=== PATIENT | male | born 1980 | race Caucasian/White ===

== ENCOUNTER 2018-06-23 14:43 | Emergency (ER) | payer SELFPAY ==
[2018-06-23] MEDS ORDERED: Ketorolac 60 MG/2 ML SDV IM ONE (14:54)
--- NOTE | 2018-06-23 15:05 | EDM.PDOC ---
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 Past medical history: As per history of present illness and as reviewed below otherwise noncontributory. Surgical history: As per history of present illness and as reviewed below otherwise noncontributory. Social history: No reported history of drug or alcohol abuse. Family history: As per history of present illness and as reviewed below otherwise noncontributory. Physical exam: HEENT: Atraumatic, normocephalic, pupils reactive, negative for conjunctival pallor or scleral icterus, mucous membranes moist, throat clear, neck supple, nontender, trachea midline. Lungs: Clear to auscultation, breath sounds equal bilaterally, chest nontender. Heart: S1S2, regular, negative for clicks, rubs, or JVD. Abdomen: Soft, nondistended, nontender. Negative for masses or hepatosplenomegaly. Negative for costovertebral tenderness. Pelvis: Stable nontender. Genitourinary: Deferred. Rectal: Deferred. Extremities: Atraumatic, negative for cords or calf pain. Neurovascular unremarkable. Neuro: Awake, alert, oriented. Cranial nerves II through XII unremarkable. Cerebellum unremarkable. Motor and sensory unremarkable throughout. Exam nonfocal. Diagnostics: [] lumbar spine Therapeutics: [] or dull 60 IM Toradol Flexeril Impression: [] muscle spasm Definitive disposition and diagnosis as appropriate pending reevaluation and review of above. upper right back Pain Score (Numeric/FACES): 8 - Related Data Allergies Allergy/AdvReac Type Severity Reaction Status Date / Time No Known Allergies Allergy Verified 06/23/18 14:56 Home Meds: Home Meds . [No Known Home Meds] 06/23/18 [History] Past Medical History Genitourinary History: Reports: Renal Calculus - Infectious Disease History Infectious Disease History: Reports: Chicken Pox - Past Surgical History Male Surgical History: Reports: Kidney Stone Extraction, Lithotripsy ([facility]) Social & Family History - Family History Family Medical History: Noncontributory - Tobacco Use Smoking Status *Q: Current Every Day Smoker Years of Tobacco use: 15 Packs/Tins Daily: 1 - Caffeine Use Caffeine Use: Reports: Coffee, Tea - Recreational Drug Use Recreational Drug Use: No ED ROS GENERAL - Review of Systems Review Of Systems: See Below ED EXAM, GENERAL - Physical Exam Exam: See Below Course - Vital Signs Last Recorded V/S: Last Vital Signs Temp 97.9 F 06/23/18 14:56 Pulse 96 06/23/18 14:56 Resp 18 06/23/18 14:56 BP 117/76 06/23/18 14:56 Pulse Ox 98 06/23/18 14:56 - Orders/Labs/Meds Meds: Medications Discontinued Medications Generic Name Dose Route Start Last Admin Trade Name Evelia PRN Reason Stop Dose Admin Ketorolac Tromethamine 60 mg 06/23/18 14:54 06/23/18 15:16 Toradol IM 06/23/18 14:55 60 mg ONETIME ONE Administration Departure - Departure Time of Disposition: 16:22 Disposition: Home, Self-Care 01 Condition: Good Clinical Impression: Spasm of lumbar paraspinous muscle - Discharge Information Referrals: PCP,None [Primary Care Provider] - Forms: ED Department Discharge Additional Instructions: The following information is given to patients seen in the emergency department who are being discharged to home. This information is to outline your options for follow-up care. We provide all patients seen in our emergency department with a follow-up referral. The need for follow-up, as well as the timing and circumstances, are variable depending upon the specifics of your emergency department visit. If you don't have a primary care physician on staff, we will provide you with a referral. We always advise you to contact your personal physician following an emergency department visit to inform them of the circumstance of the visit and for follow-up with them and/or the need for any referrals to a consulting specialist. The emergency department will also refer you to a specialist when appropriate. This referral assures that you have the opportunity for follow-up care with a specialist. All of these measure are taken in an effort to provide you with optimal care, which includes your follow-up. Under all circumstances we always encourage you to contact your private physician who remains a resource for coordinating your care. When calling for follow-up care, please make the office aware that this follow-up is from your recent emergency room visit. If for any reason you are refused follow-up, please contact the [facility] emergency department at and asked to speak to the emergency department charge nurse.
--- NOTE | 2018-06-23 15:42 | CR ---
INDICATION: pain/no injury INDICATION: Pain, no injury TECHNIQUE: Lumbar spine three views COMPARISON: None FINDINGS AND IMPRESSION: There are 5 [id number], lumbar type vertebral bodies. Normal lumbar lordosis. Normal alignment. Vertebral body heights are maintained. No significant degenerative changes. Dictated by Carmen Adan MD @ 06/23/2018 3:40:47 PM Dictated by: Carmen Adan MD @ 06/23/2018 15:40:59 (Electronically Signed)
== END 2018-06-23 16:32 | disposition home or self-care (01) ==
LOC: MW.ED 14:43
DX: M62.830 Muscle spasm of back (principal); F17.210 Nicotine dependence, cigarettes, uncomplicated
CPT/HCPCS: 72100; 96372; 99283; J1885

== ENCOUNTER 2018-09-05 16:50 | Emergency (ER) | payer SELFPAY ==
--- NOTE | 2018-09-05 17:46 | EDM.PDOC ---
ED HPI GENERAL MEDICAL PROBLEM - General Chief Complaint: Skin Complaint Stated Complaint: BUMP ON ARM Time Seen by Provider: 09/05/18 17:42 Source of Information: Reports: Patient History Limitations: Reports: No Limitations - History of Present Illness INITIAL COMMENTS - FREE TEXT/NARRATIVE: HISTORY AND PHYSICAL: History of present illness: Patient is a 38 year old male who presents to the emergency room today with complaints of a cellulitis to the left antecubital space. He states he injected heroin approximately 3 days ago and since that time has noticed a firm red area to the antecubital space. He denies any fevers, chills, chest pain, shortness of breath or cough. He denies any abdominal pain, nausea, vomiting, diarrhea, constipation or dysuria. States he has been eating and drinking appropriately. Review of systems: As per history of present illness and below otherwise all systems reviewed and negative. Past medical history: As per history of present illness and as reviewed below otherwise noncontributory. Surgical history: As per history of present illness and as reviewed below otherwise noncontributory. Social history: See social history for further information Family history: As per history of present illness and as reviewed below otherwise noncontributory. Physical exam: General: Well-developed and well-nourished 38 showed male. Alert and oriented. Nontoxic appearing and in no acute distress. HEENT: Atraumatic, normocephalic, pupils equal and reactive bilaterally, negative for conjunctival pallor or scleral icterus, mucous membranes moist, TMs normal bilaterally, throat clear, neck supple, nontender, trachea midline. No drooling or trismus noted. No meningeal signs. No hot potato voice noted. Lungs: Clear to auscultation, breath sounds equal bilaterally, chest nontender. Heart: S1S2, regular rate and rhythm without overt murmur Abdomen: Soft, nondistended, nontender. Negative for masses or hepatosplenomegaly. Negative for costovertebral tenderness. Pelvis: Stable nontender. Genitourinary: Deferred. Rectal: Deferred. Skin: Intact, warm, dry. No lesions or rashes noted. Extremities: Atraumatic, moves all extremities per self with difficulty or deficits, negative for cords or calf pain. Neurovascular unremarkable. Neuro: Awake, alert, oriented. Cranial nerves II through XII unremarkable. Cerebellum unremarkable. Motor and sensory unremarkable throughout. Exam nonfocal. Notes: Area was outlined surgical marker. He is agreeable to doing labs and a dose of IV antibiotics. I did strongly encourage that he allow admission today. He declines at this time stating that he can't afford to miss work. Admission was offered and 2 separate occasions. He is aware of the risks of not taking care of this appropriately. He would prefer to try outpatient by mouth antibiotics, he will return if he feels symptoms are not improving. Supportive care measures were reviewed and discussed. Voices understanding and is agreeable to plan of care. Denies any further questions or concerns at this time. Diagnostics: CBC, CMP, blood cultures Therapeutics: Vancomycin Prescription: Bactrim DS Tramadol (#20) Impression: Cellulitis, left upper extremity History of IV drug abuse Plan: 1. Stop drug use. Continue to monitor the area for signs of improvement. He declined admission today. If the area gets worse, new symptoms develop or no sign of improvement you do need to return to the emergency room for admission. 2. Take the antibiotic as prescribed. Tylenol and/or ibuprofen as needed for pain management. 3. Follow-up with primary care provider as we discussed. Return to the ED as needed and as discussed. Definitive disposition and diagnosis as appropriate pending reevaluation and review of above. left elbow wound Pain Score (Numeric/FACES): 2 - Related Data Allergies Allergy/AdvReac Type Severity Reaction Status Date / Time No Known Allergies Allergy Verified 09/05/18 17:14 Home Meds: Home Meds . [No Known Home Meds] 06/23/18 [History] Past Medical History - Past Health History Medical/Surgical History: Denies Medical/Surgical History Genitourinary History: Reports: Renal Calculus - Infectious Disease History Infectious Disease History: Reports: Chicken Pox - Past Surgical History Male Surgical History: Reports: Kidney Stone Extraction, Lithotripsy ([facility]) Social & Family History - Family History Family Medical History: Noncontributory - Tobacco Use Smoking Status *Q: Current Every Day Smoker Years of Tobacco use: 10 Packs/Tins Daily: 1 - Caffeine Use Caffeine Use: Reports: Coffee, Soda, Tea - Recreational Drug Use Recreational Drug Use: No ED ROS GENERAL - Review of Systems Review Of Systems: ROS reveals no pertinent complaints other than HPI. ED EXAM, SKIN/RASH Exam: See Below (See dictation) Course - Vital Signs Last Recorded V/S: Last Vital Signs Temp 99.8 F 09/05/18 17:11 Pulse 111 H 09/05/18 17:11 Resp 16 09/05/18 17:11 BP 123/67 09/05/18 17:11 Pulse Ox 98 09/05/18 17:11 - Orders/Labs/Meds Orders: Active Orders 24 hr Category Date Time Status CULTURE BLOOD [BC] Stat Lab 09/05/18 18:00 Received CULTURE BLOOD [BC] Stat Lab 09/05/18 18:41 Received Blood Culture x2 Reflex Set [OM.PC] Stat Oth 09/05/18 17:43 Ordered Labs: Laboratory Tests 09/05/18 09/05/18 Range/Units 18:00 18:00 WBC 15.75 H (4.0-11.0) K/uL RBC 4.90 (4.50-5.90) M/uL Hgb 14.5 (13.0-17.0) g/dL Hct 41.9 (38.0-50.0) % MCV 85.5 (80.0-98.0) fL MCH 29.6 (27.0-32.0) pg MCHC 34.6 (31.0-37.0) g/dL RDW Std Deviation 41.6 (28.0-62.0) fl RDW Coeff of Janelle 13 (11.0-15.0) % Plt Count 357 (150-400) K/uL MPV 9.00 (7.40-12.00) fL Neut % (Auto) 77.5 (48.0-80.0) % Lymph % (Auto) 13.1 L (16.0-40.0) % Greenlee % (Auto) 8.4 (0.0-15.0) % Eos % (Auto) 0.7 (0.0-7.0) % Baso % (Auto) 0.3 (0.0-1.5) % Neut # (Auto) 12.2 H (1.4-5.7) K/uL Lymph # (Auto) 2.1 (0.6-2.4) K/uL Greenlee # (Auto) 1.3 H (0.0-0.8) K/uL Eos # (Auto) 0.1 (0.0-0.7) K/uL Baso # (Auto) 0.0 (0.0-0.1) K/uL Nucleated RBC % 0.0 /100WBC Nucleated RBCs # 0 K/uL Sodium 142 (136-148) mmol/L Potassium 3.8 (3.5-5.1) mmol/L Chloride 105 (98-107) mmol/L Carbon Dioxide 26.0 (21.0-32.0) mmol/L BUN 15 (7.0-18.0) mg/dL Creatinine 0.8 (0.8-1.3) mg/dL Est Cr Clr Drug Dosing 114.66 mL/min Estimated GFR (MDRD) > 60.0 ml/min Glucose 85 (74-106) mg/dL Calcium 8.8 (8.5-10.1) mg/dL Total Bilirubin 0.3 (0.2-1.0) mg/dL AST 8 L (15-37) IU/L ALT 21 (14-63) IU/L Alkaline Phosphatase 80 (46-116) U/L Total Protein 7.7 (6.4-8.2) g/dL Albumin 3.4 (3.4-5.0) g/dL Globulin 4.3 H (2.6-4.0) g/dL Albumin/Globulin Ratio 0.8 L (0.9-1.6) Meds: Medications Discontinued Medications Generic Name Dose Route Start Last Admin Trade Name Freq PRN Reason Stop Dose Admin Vancomycin HCl 1 gm/ Sodium 250 mls @ 250 mls/hr 09/05/18 17:43 09/05/18 17: 57 Chloride IV 09/05/18 18:42 250 mls/hr ONETIME ONE Administration Departure - Departure Time of Disposition: 18:10 Disposition: Home, Self-Care 01 Clinical Impression: History of intravenous drug abuse Cellulitis Qualifiers: Site of cellulitis: extremity Site of cellulitis of extremity: upper extremity Laterality: left Qualified Code(s): L03.114 - Cellulitis of left upper limb - Discharge Information Instructions: Cellulitis, Adult, [id number] Referrals: PCP,Unknown [Primary Care Provider] - Forms: ED Department Discharge Additional Instructions: The following information is given to patients seen in the emergency department who are being discharged to home. This information is to outline your options for follow-up care. We provide all patients seen in our emergency department with a follow-up referral. The need for follow-up, as well as the timing and circumstances, are variable depending upon the specifics of your emergency department visit. If you don't have a primary care physician on staff, we will provide you with a referral. We always advise you to contact your personal physician following an emergency department visit to inform them of the circumstance of the visit and for follow-up with them and/or the need for any referrals to a consulting specialist. The emergency department will also refer you to a specialist when appropriate. This referral assures that you have the opportunity for follow-up care with a specialist. All of these measure are taken in an effort to provide you with optimal care, which includes your follow-up. Under all circumstances we always encourage you to contact your private physician who remains a resource for coordinating your care. When calling for follow-up care, please make the office aware that this follow-up is from your recent emergency room visit. If for any reason you are refused follow-up, please contact the [facility] Emergency Department at and asked to speak to the emergency department charge nurse. [facility] [address] [place] [address] [address] 1. Stop drug use. Continue to monitor the area for signs of improvement. He declined admission today. If the area gets worse, new symptoms develop or no sign of improvement you do need to return to the emergency room for admission. 2. Take the antibiotic as prescribed. Tylenol and/or ibuprofen as needed for pain management. 3. Follow-up with primary care provider as we discussed. Return to the ED as needed and as discussed. - My Orders Last 24 Hours: My Active Orders 09/05/18 17:43 Blood Culture x2 Reflex Set [OM.PC] Stat 09/05/18 18:00 CULTURE BLOOD [BC] Stat 09/05/18 18:41 CULTURE BLOOD [BC] Stat - Assessment/Plan Last 24 Hours: My Active Orders 09/05/18 17:43 Blood Culture x2 Reflex Set [OM.PC] Stat 09/05/18 18:00 CULTURE BLOOD [BC] Stat 09/05/18 18:41 CULTURE BLOOD [] Stat
[2018-09-05 18:43] LABS: CHLORIDE,CL 105 mmol/L (98-107); SODIUM,NA 142 mmol/L (136-148)
== END 2018-09-05 19:12 | disposition home or self-care (01) ==
LOC: MW.ED 16:50
DX: L03.114 Cellulitis of left upper limb (principal); F17.210 Nicotine dependence, cigarettes, uncomplicated
CPT/HCPCS: 36415; 80053; 85025; 87040; 96365; 99283; J3370; J7050

== ENCOUNTER 2018-09-06 13:55 | Emergency (ER) | payer SELFPAY ==
[2018-09-06] MEDS ORDERED: Ampicillin/Sulbactam Na 3 GM in Sodium Chloride 0.9% 100 ML IV ONE ×2 (14:24→14:35)
--- NOTE | 2018-09-06 14:30 | EDM.PDOC ---
ED HPI GENERAL MEDICAL PROBLEM - General Chief Complaint: Skin Complaint Stated Complaint: CHECK UP Time Seen by Provider: 09/06/18 13:58 Source of Information: Reports: Patient History Limitations: Reports: No Limitations - History of Present Illness INITIAL COMMENTS - FREE TEXT/NARRATIVE: HISTORY AND PHYSICAL: History of present illness: Patient is a 38-year-old male who presents to the ED today for follow-up of an antecubital cellulitis. Patient was seen yesterday in the ER and given IV antibiotics and oral Bactrim. She will cellulitis. At that time he was offered admission and declined. He states he is acting ED today for reevaluation of the infection. He denies no new complaints from prior. He states that he does not feel any better but also does not feel worse than yesterday. The area of cellulitis was marked yesterday ED visit. He was given IV vancomycin and sent home with oral Bactrim. He states he has been taking the antibiotics as prescribed. Patient denies fever, chills, or cough. Denies headache, neck stiff ness, change in vision, syncope, or near syncope. Denies nausea, vomiting, abdominal pain, diarrhea, constipation, or dysuria. Has not noted any blood in urine or stool. Patient has been eating and drinking appropriately. Review of systems: As per history of present illness and below otherwise all systems reviewed and negative. Past medical history: As per history of present illness and as reviewed below otherwise noncontributory. Surgical history: As per history of present illness and as reviewed below otherwise noncontributory. Social history: See social history for further information Family history: As per history of present illness and as reviewed below otherwise noncontributory. Physical exam: General: Patient is alert, oriented, and in no acute distress. He is sitting comfortably on exam table. HEENT: Atraumatic, normocephalic, pupils equal and reactive bilaterally, negative for conjunctival pallor or scleral icterus, mucous membranes moist, TMs normal bilaterally, throat clear, neck supple, nontender, trachea midline. No drooling or trismus noted. No meningeal signs. No hot potato voice noted. Lungs: Clear to auscultation, breath sounds equal bilaterally, chest nontender. Heart: S1S2, regular rate and rhythm without overt murmur Abdomen: Soft, nondistended, nontender. Negative for masses or hepatosplenomegaly. Negative for costovertebral tenderness. Pelvis: Stable nontender. Genitourinary: Deferred. Rectal: Deferred. Skin: There is an area of cellulitis and left antecubital prior outlined by surgical marker pen. The erythema seems to have spread slightly more proximal towards the left axilla but has recessed distally away from the forearm. The area is tender to palpation and warm to touch. Radial pulses grossly intact of the left arm and capillary refill less than 2 seconds. Extremities: See skin. Otherwise, atraumatic, negative for cords or calf pain. Neurovascular unremarkable. Neuro: Awake, alert, oriented. Cranial nerves II through XII unremarkable. Cerebellum unremarkable. Motor and sensory unremarkable throughout. Exam nonfocal. Notes: Patient's white blood cell count was slightly improved today. Area of erythema was re-outlined today. IV antibiotics in ED. Dr. Aceves was involved in patients care. Discussed the importance for monitoring for improvement of infection. Admission was offered to patient patient but he declines at this time. Discussed the importance for follow-up with his primary care provider and to continue outpatient antibiotic. Supportive care measures were reviewed and discussed. Voices understanding and is agreeable to plan of care. Denies any further questions or concerns at this time. Diagnostics: CBC Therapeutics: IV Unasyn Prescription: None Impression: Skin cellulitis, left antecubital Plan: 1. Continue medications as prescribed prior. You can use ibuprofen and Tylenol as needed for pain and discomfort. 2. Follow-up with her primary care provider as discussed. 3. Return to the ED as needed and as discussed. Definitive disposition and diagnosis as appropriate pending reevaluation and review of above. - Related Data Allergies Allergy/AdvReac Type Severity Reaction Status Date / Time No Known Allergies Allergy Verified 09/05/18 17:14 Home Meds: Home Meds Sulfamethoxazole/Trimethoprim [Bactrim 400-80 MG] 1 tab PO BID 09/06/18 [History ] Past Medical History - Past Health History Medical/Surgical History: Denies Medical/Surgical History Genitourinary History: Reports: Renal Calculus - Infectious Disease History Infectious Disease History: Reports: Chicken Pox - Past Surgical History Male Surgical History: Reports: Kidney Stone Extraction, Lithotripsy (ESWL) Social & Family History - Family History Family Medical History: Noncontributory - Tobacco Use Smoking Status *Q: Current Every Day Smoker Years of Tobacco use: 10 Packs/Tins Daily: 1 - Caffeine Use Caffeine Use: Reports: Coffee, Soda, Tea - Recreational Drug Use Recreational Drug Use: No ED ROS GENERAL - Review of Systems Review Of Systems: ROS reveals no pertinent complaints other than HPI. ED EXAM, SKIN/RASH Exam: See Below (See dictation) Course - Vital Signs Last Recorded V/S: Last Vital Signs Temp 36.6 C 09/06/18 14:12 Pulse 93 09/06/18 14:12 Resp 14 09/06/18 14:12 BP 120/63 09/06/18 14:12 Pulse Ox 97 09/06/18 14:12 - Orders/Labs/Meds Labs: Laboratory Tests 09/06/18 Range/Units 14:34 WBC 15.28 H (4.0-11.0) K/uL RBC 4.73 (4.50-5.90) M/uL Hgb 14.2 (13.0-17.0) g/dL Hct 40.7 (38.0-50.0) % MCV 86.0 (80.0-98.0) fL MCH 30.0 (27.0-32.0) pg MCHC 34.9 (31.0-37.0) g/dL RDW Std Deviation 41.6 (28.0-62.0) fl RDW Coeff of Janelle 13 (11.0-15.0) % Plt Count 368 (150-400) K/uL MPV 9.00 (7.40-12.00) fL Neut % (Auto) 79.9 (48.0-80.0) % Lymph % (Auto) 11.2 L (16.0-40.0) % [place] % (Auto) 7.7 (0.0-15.0) % Eos % (Auto) 1.0 (0.0-7.0) % Baso % (Auto) 0.2 (0.0-1.5) % Neut # (Auto) 12.2 H (1.4-5.7) K/uL Lymph # (Auto) 1.7 (0.6-2.4) K/uL [place] # (Auto) 1.2 H (0.0-0.8) K/uL Eos # (Auto) 0.2 (0.0-0.7) K/uL Baso # (Auto) 0.0 (0.0-0.1) K/uL Nucleated RBC % 0.0 /100WBC Nucleated RBCs # 0 K/uL Meds: Medications Discontinued Medications Generic Name Dose Route Start Last Admin Trade Name Mikeq PRN Reason Stop Dose Admin Ampicillin Sodium/Sulbactam 100 mls @ 200 mls/hr 09/06/18 14:24 09/06/18 14: 50 Sodium 3 gm/ Sodium Chloride IV 09/06/18 14:53 Not Given ONETIME ONE Ampicillin Sodium/Sulbactam 100 mls @ 200 mls/hr 09/06/18 14:35 09/06/18 14: 50 Sodium 3 gm/ Sodium Chloride IV 09/06/18 15:04 200 mls/hr ONETIME ONE Administration Departure - Departure Time of Disposition: 15:18 Disposition: Home, Self-Care 01 Clinical Impression: Cellulitis Qualifiers: Site of cellulitis: extremity Site of cellulitis of extremity: upper extremity Laterality: left Qualified Code(s): L03.114 - Cellulitis of left upper limb - Discharge Information Instructions: Cellulitis, Adult, Dhev-ab-Hyna Referrals: PCP,Unknown [Primary Care Provider] - Forms: ED Department Discharge Additional Instructions: The following information is given to patients seen in the emergency department who are being discharged to home. This information is to outline your options for follow-up care. We provide all patients seen in our emergency department with a follow-up referral. The need for follow-up, as well as the timing and circumstances, are variable depending upon the specifics of your emergency department visit. If you don't have a primary care physician on staff, we will provide you with a referral. We always advise you to contact your personal physician following an emergency department visit to inform them of the circumstance of the visit and for follow-up with them and/or the need for any referrals to a consulting specialist. The emergency department will also refer you to a specialist when appropriate. This referral assures that you have the opportunity for follow-up care with a specialist. All of these measure are taken in an effort to provide you with optimal care, which includes your follow-up. Under all circumstances we always encourage you to contact your private physician who remains a resource for coordinating your care. When calling for follow-up care, please make the office aware that this follow-up is from your recent emergency room visit. If for any reason you are refused follow-up, please contact the [facility] Emergency Department at and asked to speak to the emergency department charge nurse. [facility] [address], [place] [address] [facility] [address] [place] [id number] 1. Continue medications as prescribed prior. You can use ibuprofen and Tylenol as needed for pain and discomfort. 2. Follow-up with her primary care provider as discussed. 3. Return to the ED as needed and as discussed.
== END 2018-09-06 16:03 | disposition home or self-care (01) ==
LOC: MW.ED 13:55
DX: L03.114 Cellulitis of left upper limb (principal); F17.210 Nicotine dependence, cigarettes, uncomplicated
CPT/HCPCS: 36415; 85025; 96365; 99283; J0295; J7030

== ENCOUNTER 2018-09-07 18:11 | Emergency (ER) | payer SELFPAY ==
[2018-09-08] MEDS ORDERED: fentaNYL 100 MCG/2 ML SDV ONE ×2 (08:39→09:27)
[2018-09-08] MEDS ORDERED: Lidocaine 2% 5 ML SDV ONE (08:39)
[2018-09-08] MEDS ORDERED: Dexamethasone 4 MG/ML 5 ML MDV ONE (08:39)
[2018-09-08] MEDS ORDERED: Midazolam 1 MG/ML 2 ML SDV ONE (08:39)
[2018-09-08] MEDS ORDERED: Propofol 200 MG/20 ML SDV ONE ×2 (08:39→09:26)
[2018-09-08] MEDS ORDERED: Ketorolac 30 MG/ML SDV ONE (08:39)
[2018-09-08] MEDS ORDERED: Ondansetron 4 MG/2 ML SDV ONE (08:39)
== END 2018-09-07 20:00 | disposition left against medical advice (07) ==
LOC: MW.ED 18:11
DX: Z53.21 Procedure and treatment not carried out due to patient leaving prior to being seen by health care provider (principal)
CPT/HCPCS: 99281

== ENCOUNTER 2018-09-08 01:36 | Inpatient (IN) | payer SELFPAY ==
--- NOTE | 2018-09-08 01:49 | EDM.PDOC ---
ED HPI GENERAL MEDICAL PROBLEM - General Stated Complaint: CELLULITIS ON LEFT ARM Time Seen by Provider: 09/08/18 01:44 - History of Present Illness INITIAL COMMENTS - FREE TEXT/NARRATIVE: HISTORY AND PHYSICAL: History of present illness: The patient is a 38-year-old male with a history of IV drug abuse, heroin, who was seen here on September 05 and September 06 for cellulitis to the left antecubital fossa. On September 05 he was seen with complaints of having injected heroin in this region 3 days prior on September 02 noticing redness and pain to the area. On that admission he had labs indicating a WBC count of 15.75 without a left shift and blood cultures were also drawn. Those blood cultures have yielded negative results. He was given vancomycin IV and Bactrim for home as he refused admission and that ED visit. The patient returned the next day concerned because the area of cellulitis have been marked by the provider on September 05 and he thought that it was getting larger in size. On that evaluation the provider noted that there was some extension of the erythema superiorly but that was also regression of the inferior aspect of the region. WBC count was repeated and had lowered to 15.28 with no left shift. Again he was given IV Unasyn and he was offered admission and declined and wanted to pursue outpatient follow- up. The patient re-presented to our ED at about 8 PM last evening, approximately 6 hours ago, for reevaluation and care and when the triage nurse when out to find him he had departed without telling anyone that he was leaving. The patient now presents to the ED this morning complaining of increased swelling redness and discomfort at the area and he is concerned because he is having limited range of motion at the elbow. He had no recent new injury to the area and he states that he has been compliant with his antibiotics and he feels like the larger area of redness has improved but he feels like the central area has increased in size and pain. He told the nurse that he thought it was compressing the blood flow to his hand although he has no numbness or tingling in his hand and is able to range of motion at the hand or wrist without problems. He has no systemic complaints of fever chills nausea or vomiting no chest pain or shortness of breath and no other lesions or skin areas in question. He received a tetanus shot on one of his prior ED visits this week. The patient tells me that he wanted to get this taken care of because he needs to go to work and that he would be willing to be admitted if that were indicated. Review of systems: As per history of present illness and below otherwise all systems reviewed and negative. Past medical history: As per history of present illness and as reviewed below otherwise noncontributory. Surgical history: As per history of present illness and as reviewed below otherwise noncontributory. Social history: No reported history of drug or alcohol abuse. Family history: As per history of present illness and as reviewed below otherwise noncontributory. Physical exam: General: Well-developed well-nourished thin man who is nontoxic and vital signs are noted by me HEENT: Atraumatic, normocephalic, pupils reactive, negative for conjunctival pallor or scleral icterus, mucous membranes moist, throat clear, neck supple, nontender, trachea midline. Lungs: Clear to auscultation, breath sounds equal bilaterally, chest nontender. Heart: S1S2, regular rhythm and slowly tachycardic rate of my evaluation but no overt murmurs Abdomen: Soft, nondistended, nontender. NABS Pelvis: Deferred Genitourinary: Deferred. Rectal: Deferred. Extremities: Atraumatic, no palpable bony deformities are appreciated throughout the skeleton more specially in the left upper extremity. At the left antecubital fossa area more to the medial aspect there is a large ill-defined area of erythema which extends both superiorly and inferiorly which appears to be improving from prior markings in the ED. There is an 8 x 8 cm ill-defined area more centrally in this region which is more indurated and more well demarcated and within the center there is a 3 x 3 cm area of fluctuance. There is no crepitus appreciated throughout this region nor in the proximal and superior aspects of the extremity and there is no axillary adenopathy appreciated. Pulses are very strong and palpable both radial and ulnar in the distal wrist and there is good cap refill in the hand with strength and range of motion of the hand and wrist. There is normal capillary Refill. Remainder the extremities have full range of motion without defects or deficits.. Neurovascular unremarkable. Neuro: Awake, alert, oriented. Cranial nerves II through XII unremarkable. Cerebellum unremarkable. Motor and sensory unremarkable throughout. Exam nonfocal. Diagnostics: CBC CMP lactic acid blood cultures 2 x-ray of the soft tissue elbow left ultrasound of the region in question Therapeutics: IV placement Toradol Invanz 0317: Case was discussed with our orthopedic surgeon carbon brush maker Dr. Carpenter will do a formal consult in the morning and request a CT scan without contrast of the arm so that he can potentially do surgery this morning. He asked that the patient is NPO and I have put on D5 half-normal saline IV fluids at maintenance. 0320: Case was discussed with Dr. Bowser our hospitalist who accepts the patient for admission. He is aware that the orthopedic surgeon will be seeing the patient in the morning and consulting and probably draining this abscess in the operating room. I've also discussed testing results with the patient who is agreeable to admission and is aware of his nothing by mouth status. Patient says that his pain is currently a 2/10 and is more dull. Impression: Left upper extremity abscess/cellulitis, failed outpatient treatment Definitive disposition and diagnosis as appropriate pending reevaluation and review of above. Left Elbow Pain Score (Numeric/FACES): 5 - Related Data Allergies Allergy/AdvReac Type Severity Reaction Status Date / Time No Known Allergies Allergy Verified 09/08/18 01:49 Home Meds: Home Meds Sulfamethoxazole/Trimethoprim [Bactrim 400-80 MG] 1 tab PO BID 09/06/18 [History ] Past Medical History - Past Health History Medical/Surgical History: Denies Medical/Surgical History Genitourinary History: Reports: Renal Calculus - Infectious Disease History Infectious Disease History: Reports: Chicken Pox - Past Surgical History Male Surgical History: Reports: Kidney Stone Extraction, Lithotripsy (ESWL) Social & Family History - Family History Family Medical History: Noncontributory - Caffeine Use Caffeine Use: Reports: Coffee, Soda, Tea ED ROS GENERAL - Review of Systems Review Of Systems: ROS reveals no pertinent complaints other than HPI. ED EXAM, GENERAL - Physical Exam Exam: See Below (See dictation) Course - Vital Signs Last Recorded V/S: Last Vital Signs Temp 36.8 C 09/08/18 03:07 Pulse 86 09/08/18 03:07 Resp 16 09/08/18 03:07 BP 119/67 09/08/18 01:46 Pulse Ox 96 09/08/18 03:07 - Orders/Labs/Meds Orders: Active Orders 24 hr Category Date Time Status Patient Status [ADT] Stat ADT 09/08/18 03:25 Ordered Notify Provider Consults [RC] ASDIRECTED Care 09/08/18 03:29 Ordered Consult to Physician [CONS] Stat Cons 09/08/18 03:29 Ordered Extremity, Non Vascular LTD [CT] Stat Exams 09/08/18 03:20 Ordered CULTURE BLOOD [BC] Stat Lab 09/08/18 02:20 Received CULTURE BLOOD [BC] Stat Lab 09/08/18 02:38 Received Dextrose 5%-1/2 Normal Saline @ 125 MLS/HR(1000ml) Med 09/08/18 03:30 Ordered Dextrose 5%-0.45% NaCl [Dextrose 5%-1/2 NS] 1,000 ml IV ASDIRECTED Sodium Chloride 0.9% [Saline Flush] Med 09/08/18 02:00 Active 10 ml FLUSH ASDIRECTED PRN Sodium Chloride 0.9% [Saline Flush] Med 09/08/18 02:00 Active 2.5 ml FLUSH ASDIRECTED PRN Blood Culture x2 Reflex Set [OM.PC] Stat Oth 09/08/18 02:06 Ordered Saline Lock Insert [OM.PC] Stat Oth 09/08/18 01:59 Ordered Medication Orders Dextrose/Sodium Chloride (Dextrose 5%-1/2 Ns) 1,000 mls @ 125 mls/hr IV ASDIRECTED CHANG Sodium Chloride (Saline Flush) 10 ml FLUSH ASDIRECTED PRN PRN Reason: Keep Vein Open Last Admin: 09/08/18 03:05 Dose: 10 ml Sodium Chloride (Saline Flush) 2.5 ml FLUSH ASDIRECTED PRN PRN Reason: Keep Vein Open Last Admin: 09/08/18 03:05 Dose: 2.5 ml Labs: Laboratory Tests 09/08/18 09/08/18 09/08/18 Range/Units 02:20 02:20 02:20 WBC 13.59 H (4.0-11.0) K/uL RBC 4.84 (4.50-5.90) M/uL Hgb 14.3 (13.0-17.0) g/dL Hct 41.6 (38.0-50.0) % MCV 86.0 (80.0-98.0) fL MCH 29.5 (27.0-32.0) pg MCHC 34.4 (31.0-37.0) g/dL RDW Std Deviation 41.6 (28.0-62.0) fl RDW Coeff of Janelle 13 (11.0-15.0) % Plt Count 396 (150-400) K/uL MPV 8.90 (7.40-12.00) fL Neut % (Auto) 73.9 (48.0-80.0) % Lymph % (Auto) 13.8 L (16.0-40.0) % [place] % (Auto) 9.3 (0.0-15.0) % Eos % (Auto) 2.9 (0.0-7.0) % Baso % (Auto) 0.1 (0.0-1.5) % Neut # (Auto) 10.0 H (1.4-5.7) K/uL Lymph # (Auto) 1.9 (0.6-2.4) K/uL [place] # (Auto) 1.3 H (0.0-0.8) K/uL Eos # (Auto) 0.4 (0.0-0.7) K/uL Baso # (Auto) 0.0 (0.0-0.1) K/uL Nucleated RBC % 0.0 /100WBC Nucleated RBCs # 0 K/uL Lactate 1.5 (0.20-2.00) mmol/L Sodium 138 (136-148) mmol/L Potassium 3.9 (3.5-5.1) mmol/L Chloride 101 (98-107) mmol/L Carbon Dioxide 26.7 (21.0-32.0) mmol/L BUN 19 H (7.0-18.0) mg/dL Creatinine 1.0 (0.8-1.3) mg/dL Est Cr Clr Drug Dosing 91.73 mL/min Estimated GFR (MDRD) > 60.0 ml/min Glucose 154 H (74-106) mg/dL Calcium 8.7 (8.5-10.1) mg/dL Total Bilirubin 0.2 (0.2-1.0) mg/dL AST 12 L (15-37) IU/L ALT 17 (14-63) IU/L Alkaline Phosphatase 73 (46-116) U/L Total Protein 7.5 (6.4-8.2) g/dL Albumin 3.0 L (3.4-5.0) g/dL Globulin 4.5 H (2.6-4.0) g/dL Albumin/Globulin Ratio 0.7 L (0.9-1.6) Meds: Medications Generic Name Dose Route Start Last Admin Trade Name Freq PRN Reason Stop Dose Admin Dextrose/Sodium Chloride 1,000 mls @ 125 mls/hr 09/08/18 03:30 Dextrose 5%-1/2 Ns IV ASDIRECTED CHANG Sodium Chloride 10 ml 09/08/18 02:00 09/08/18 03:05 Saline Flush FLUSH 10 ml ASDIRECTED PRN Administration Keep Vein Open Sodium Chloride 2.5 ml 09/08/18 02:00 09/08/18 03:05 Saline Flush FLUSH 2.5 ml ASDIRECTED PRN Administration Keep Vein Open Discontinued Medications Generic Name Dose Route Start Last Admin Trade Name Mikeq PRN Reason Stop Dose Admin Ertapenem 1 gm/ Sodium 50 mls @ 100 mls/hr 09/08/18 02:01 09/08/18 03:04 Chloride IV 09/08/18 02:30 100 mls/hr ONETIME ONE Administration Ketorolac Tromethamine 30 mg 09/08/18 02:01 09/08/18 02:18 Toradol IVPUSH 09/08/18 02:02 30 mg ONETIME ONE Administration Morphine Sulfate 4 mg 09/08/18 02:06 09/08/18 02:19 Morphine IVPUSH 09/08/18 02:07 4 mg ONETIME ONE Administration Departure - Departure Time of Disposition: 03:31 Disposition: Admitted As Inpatient 68 Condition: Good Clinical Impression: Abscess, Cellulitis of left forearm - Discharge Information Referrals: PCP,None [Primary Care Provider] - - My Orders Last 24 Hours: My Active Orders 09/08/18 01:59 Saline Lock Insert [OM.PC] Stat 09/08/18 02:00 Sodium Chloride 0.9% [Saline Flush] 10 ml FLUSH ASDIRECTED PRN Sodium Chloride 0.9% [Saline Flush] 2.5 ml FLUSH ASDIRECTED PRN 09/08/18 02:06 Blood Culture x2 Reflex Set [OM.PC] Stat 09/08/18 02:20 CULTURE BLOOD [BC] Stat 09/08/18 02:38 CULTURE BLOOD [BC] Stat 09/08/18 03:20 Extremity, Non Vascular LTD [CT] Stat 09/08/18 03:25 Patient Status [ADT] Stat 09/08/18 03:29 Notify Provider Consults [RC] ASDIRECTED Consult to Physician [CONS] Stat 09/08/18 03:30 Dextrose 5%-1/2 Normal Saline @ 125 MLS/HR(1000ml) Dextrose 5%-0.45% NaCl [ Dextrose 5%-1/2 NS] 1,000 ml IV ASDIRECTED - Assessment/Plan Last 24 Hours: My Active Orders 09/08/18 01:59 Saline Lock Insert [OM.PC] Stat 09/08/18 02:00 Sodium Chloride 0.9% [Saline Flush] 10 ml FLUSH ASDIRECTED PRN Sodium Chloride 0.9% [Saline Flush] 2.5 ml FLUSH ASDIRECTED PRN 09/08/18 02:06 Blood Culture x2 Reflex Set [OM.PC] Stat 09/08/18 02:20 CULTURE BLOOD [BC] Stat 09/08/18 02:38 CULTURE BLOOD [BC] Stat 09/08/18 03:20 Extremity, Non Vascular LTD [CT] Stat 09/08/18 03:25 Patient Status [ADT] Stat 09/08/18 03:29 Notify Provider Consults [RC] ASDIRECTED Consult to Physician [CONS] Stat 09/08/18 03:30 Dextrose 5%-1/2 Normal Saline @ 125 MLS/HR(1000ml) Dextrose 5%-0.45% NaCl [ Dextrose 5%-1/2 NS] 1,000 ml IV ASDIRECTED
[2018-09-08] MEDS ORDERED: Sodium Chloride 0.9% 10 ML Syringe FLUSH PRN (02:00)
[2018-09-08] MEDS ORDERED: Sodium Chloride 0.9% 2.5 ML Syringe FLUSH PRN (02:00)
[2018-09-08] MEDS ORDERED: Ertapenem 1 GM in Sodium Chloride 0.9% 50 ML IV ONE (02:01)
[2018-09-08] MEDS ORDERED: Ketorolac 30 MG/ML SDV IVPUSH ONE (02:01)
[2018-09-08] MEDS ORDERED: Morphine 2 MG/ML Syringe IVPUSH ONE (02:06)
--- NOTE | 2018-09-08 02:28 | CR ---
INDICATION: Pain and swelling TECHNIQUE: Two views left elbow COMPARISON: None FINDINGS: Bones: Alignment is normal. No fractures or bone lesions. Joint spaces: Unremarkable. Soft tissues: Soft tissue edema medial to the elbow joint. IMPRESSION: Soft tissue edema medial to the elbow joint. Dictated by Peterson Hahn MD @ 09/08/2018 2:25:28 AM Dictated by: Peterson Hahn MD @ 09/08/2018 02:25:41 (Electronically Signed)
[2018-09-08 02:55] LABS: CHLORIDE,CL 101 mmol/L (98-107); SODIUM,NA 138 mmol/L (136-148)
--- NOTE | 2018-09-08 03:11 | US ---
Indication: Possible abscess Technique: Ultrasound extremity left Comparison: None Findings: Present in the soft tissues medial to the left elbow is a 5.0 centimeter mixed echogenic fluid collection worrisome for abscess. Impression: 5.0 centimeter complex fluid collection medial to the left elbow worrisome for abscess given the patient`s history. Dictated by Peterson Hahn MD @ 09/08/2018 3:08:50 AM Dictated by: Peterson Hahn MD @ 09/08/2018 03:09:03 (Electronically Signed)
[2018-09-08] MEDS ORDERED: Dextrose 5%-0.45% NaCl 1,000 ML IV SCH (03:30)
[2018-09-08] MEDS ORDERED: Diphtheria,Pertussis(Acell),Tetanus Vaccine 0.5 ML Syringe IM ONE (03:32)
--- NOTE | 2018-09-08 04:53 | CT ---
HISTORY: Swelling. Possible abscess. TECHNIQUE: CT left elbow without contrast. COMPARISON: Ultrasound 09/08/2018. Radiographs 09/08/2018. FINDINGS: Infiltration of subcutaneous fat throughout the elbow with areas of confluent infiltration volarly, medially, and dorsally. Complex process with central fluid density component in the anteromedial arm just above the elbow. Process has a thick soft tissue density peripheral component with irregularly-shaped central fluid density component. Central fluid density component measures approximately 2.2 x 1.3 x 2.5 cm. Overall process measures approximately 3.6 x 2.7 x 5.7 cm although the process is not optimally delineated in the absence of IV contrast. Process may extend into the soft tissues. Stranding and small amount of fluid in the deep fascial planes. Approximately 2 x 1.5 x 4 cm above water density area superficial to the larger process (axial series 201 image 58). No soft tissue gas. No erosions. No fracture or dislocation. Elbow joint spaces are maintained. Muscle bulk is normal. IMPRESSION: 1. Poorly delineated space-occupying process in the anteromedial elbow and arm just above the elbow. The overall process measures approximately 3.6 x 2.7 x 5.7 cm with a smaller fluid density central component. In the appropriate clinical scenario finding would be compatible with an abscess. Primary differential consideration would be a mixed age hematoma if there was an injury. Cystic neoplasm is felt less likely. 2. Subcutaneous fat infiltration from edema and/or cellulitis. 3. Inflammatory change/edema in the deep fascial planes adjacent to the process. Correlate with clinical findings of fasciitis. No soft tissue gas. 4. No erosions to suggest osteomyelitis. Please note that all CT scans at this facility use dose modulation, iterative reconstruction, and/or weight-based dosing when appropriate to reduce radiation dose to as low as reasonably achievable. Dictated by Denzel Riley MD @ Sep 09 2018 2:20PM Signed by Dr. eDnzel Riley @ Sep 09 2018 2:36PM
[2018-09-08] MEDS: Piperacillin/Tazobactam 3.375 GM in Sodium Chloride 0.9% 50 ML IV SCH ×4 (05:46→22:44)
[2018-09-08] MEDS: Sodium Chloride 0.9% 1,000 ML IV SCH ×3 (05:47→19:35)
--- NOTE | 2018-09-08 08:34 | PCM.CONS ---
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 He has been to the ER multiple times and refused admission. He received IV antibiotics and was sent home with bactrim. He is now on zosyn and vancomycin and received invanz in the ER last night. the swelling has improved since admission in the left arm, but he has difficulty bending the arm due to a localized area of swelling and pain on the anterior aspect of the arm. No numbness or tingling in the arm. Last drug use a week ago. Pain is now causing difficulty doing regular tasks Left Elbow Pain Score (Numeric/FACES): 2 - Related Data Allergies/Adverse Reactions: Allergies Allergy/AdvReac Type Severity Reaction Status Date / Time No Known Allergies Allergy Verified 09/08/18 01:49 Home Medications: Home Meds Sulfamethoxazole/Trimethoprim [Bactrim 400-80 MG] 1 tab PO BID 09/06/18 [History ] Past Medical History - Past Health History Medical/Surgical History: Denies Medical/Surgical History Genitourinary History: Reports: Renal Calculus Psychiatric History: Reports: None Dermatologic History: Reports: Cellulitis - Infectious Disease History Infectious Disease History: Reports: Chicken Pox - Past Surgical History Male Surgical History: Reports: Kidney Stone Extraction, Lithotripsy ([facility]) Social & Family History - Family History Family Medical History: Noncontributory - Tobacco Use Smoking Status *Q: Current Every Day Smoker Years of Tobacco use: 10 Packs/Tins Daily: 1 Second Hand Smoke Exposure: Yes - Caffeine Use Caffeine Use: Reports: Coffee, Soda, Tea - Alcohol Use Days Per Week of Alcohol Use: 1 Number of Drinks Per Day: 1 Total Drinks Per Week: 1 Date of Last Drink: 09/08/18 - Recreational Drug Use Recreational Drug Use: Yes Drug Use in Last 12 Months: Yes Recreational Drug Type: Reports: Heroin, Marijuana/Hashish Recreational Drug Use Frequency: Daily H&P Review of Systems - Review of Systems: Review Of Systems: ROS reveals no pertinent complaints other than HPI. Exam - Exam Exam: See Below - Vital Signs Vital Signs: Last Vital Signs Temp 37.1 C 09/08/18 07:58 Pulse 81 09/08/18 07:58 Resp 18 09/08/18 07:58 BP 122/53 L 09/08/18 07:58 Pulse Ox 98 09/08/18 07:58 Weight: 59.602 kg - Exam General: Alert, Oriented HEENT: Mucosa Moist & [place] Neck: Trachea Midline Lungs: Normal Respiratory Effort Cardiovascular: Regular Rate, Regular Rhythm GI/Abdominal Exam: Soft Physical Exam Comments:: left arm near antecubital fossa on the medial aspect shows a large raise erythematous mass about 3x3 cm. there is surrounding erythema of several centimeters with diffuse swelling up and down the arm slightly. There are multiple lines on the arm from previous cellulitis markings. he has near full ROM of left elbow limited slightly with flexion secondary to pain. normal sensation in radial/median/ulnar nerves and active AIN/PIN/Ulnar nerves. no swelling in hand and can make a full fist. there is no axillary adenopathy. - Patient Data Lab Results Last 24 hrs: Laboratory Results - last 24 hr 09/08/18 09/08/18 09/08/18 Range/Units 02:20 02:20 02:20 WBC 13.59 H (4.0-11.0) K/uL RBC 4.84 (4.50-5.90) M/uL Hgb 14.3 (13.0-17.0) g/dL Hct 41.6 (38.0-50.0) % MCV 86.0 (80.0-98.0) fL MCH 29.5 (27.0-32.0) pg MCHC 34.4 (31.0-37.0) g/dL RDW Std Deviation 41.6 (28.0-62.0) fl RDW Coeff of Janelle 13 (11.0-15.0) % Plt Count 396 (150-400) K/uL MPV 8.90 (7.40-12.00) fL Neut % (Auto) 73.9 (48.0-80.0) % Lymph % (Auto) 13.8 L (16.0-40.0) % [place] % (Auto) 9.3 (0.0-15.0) % Eos % (Auto) 2.9 (0.0-7.0) % Baso % (Auto) 0.1 (0.0-1.5) % Neut # (Auto) 10.0 H (1.4-5.7) K/uL Lymph # (Auto) 1.9 (0.6-2.4) K/uL [place] # (Auto) 1.3 H (0.0-0.8) K/uL Eos # (Auto) 0.4 (0.0-0.7) K/uL Baso # (Auto) 0.0 (0.0-0.1) K/uL Nucleated RBC % 0.0 /100WBC Nucleated RBCs # 0 K/uL Lactate 1.5 (0.20-2.00) mmol/L Sodium 138 (136-148) mmol/L Potassium 3.9 (3.5-5.1) mmol/L Chloride 101 (98-107) mmol/L Carbon Dioxide 26.7 (21.0-32.0) mmol/L BUN 19 H (7.0-18.0) mg/dL Creatinine 1.0 (0.8-1.3) mg/dL Est Cr Clr Drug Dosing 91.73 mL/min Estimated GFR (MDRD) > 60.0 ml/min Glucose 154 H (74-106) mg/dL Calcium 8.7 (8.5-10.1) mg/dL Total Bilirubin 0.2 (0.2-1.0) mg/dL AST 12 L (15-37) IU/L ALT 17 (14-63) IU/L Alkaline Phosphatase 73 (46-116) U/L Total Protein 7.5 (6.4-8.2) g/dL Albumin 3.0 L (3.4-5.0) g/dL Globulin 4.5 H (2.6-4.0) g/dL Albumin/Globulin Ratio 0.7 L (0.9-1.6) Result Diagrams: 09/08/18 02:20 09/08/18 02:20 Imaging Impressions Last 24 hrs: ultrasound and CT scan show a ~3x3 subcutaneous abscess in the anteromedial antecubital fossa with surrounding soft tissue swelling. Consult PN Assessment/Plan Procedures: Procedures ELECTROCARDIOGRAM TRACING (04/13/14) EMERGENCY DEPT VISIT (06/23/18) EMERGENCY DEPT VISIT (04/13/14) THER/PROPH/DIAG INJ SC/IM (06/23/18) URINALYSIS AUTO W/SCOPE (04/13/14) X-RAY EXAM L-S SPINE 2/3 VWS (06/23/18) X-RAY EXAM OF KNEE 3 (03/17/18) X-RAY EXAM UNILAT RIBS/CHEST (04/13/14) Problem List Initiated/Reviewed/Updated: Yes My Orders Last 24 Hours: A/P: left elbow subcutaneous abscess secondary to IV drug use - cellulitis is resolving. - plan I and D today with packing. continue abx per IM - wound will heal by secondary intention - limit narcotic use - possibly home tomorrow if can learn packing - wound will be packed with Iodophor, can be changed tomorrow morning to wet to dry or more iodophor. - will be allowed full ROM and movement of arm. the risks, benefits, alternatives, and complications of I and D were discussed with him and he wishes to proceed with surgery
[2018-09-08] MEDS: Morphine 4 MG/ML Syringe IVPUSH PRN ×4 (08:38→21:26)
--- NOTE | 2018-09-08 08:53 | PCM.HP ---
H&P History of Present Illness - General Date of Service: 09/08/18 Admit Problem/Dx: Admission Diagnosis/Problem Admission Diagnosis/Problem Abscess - History of Present Illness Initial Comments - Free Text/Narative: The patient is a 38 year old male who presented to the ER last night with increased swelling, erythema, and pain of left upper extremity. Patient reports he injected Dilaudid 1 weeks ago while in [place] into the left antecubital fossa. He then return back to [place] and started developing redness in the area. He was seen several times in the ER this week where he received IV antibiotics but refused admission. He was sent home on Bactrim which he reports he has been taking. He now has a mass at the antecubital fossa that is very tender and is limiting his ability to flex and extended his arm at the elbow. He reports associated fever/chills but denies chest pain, shortness of breath, abdominal pain, nausea/vomiting, or diarrhea. He denies injecting any other substances in the past week. In the ER, work up showed a leukocytosis of 13.5 (white count at earlier ER visits was 15), lactate within normal limits at 1.5, CMP wnl, and blood cultures are pending. Imaging included elbow x-ray which showed soft tissue edema medial to elbow joint, and an ultrasound which found a 5 cm complex fluid collection medial to elbow joint. The ER provider, consult bahman Hong Mai, who requested a CT of the extremity and saw the patient on the floor this morning. CT of the extremity showed a 3x2.5 cm complex fluid collection. Left Elbow Pain Score (Numeric/FACES): 2 - Related Data Allergies/Adverse Reactions: Allergies Allergy/AdvReac Type Severity Reaction Status Date / Time No Known Allergies Allergy Verified 09/08/18 01:49 Home Medications: Home Meds Sulfamethoxazole/Trimethoprim [Bactrim 400-80 MG] 1 tab PO BID 09/06/18 [History ] Past Medical History - Past Health History Medical/Surgical History: Denies Medical/Surgical History Genitourinary History: Reports: Renal Calculus Psychiatric History: Reports: None Dermatologic History: Reports: Cellulitis - Infectious Disease History Infectious Disease History: Reports: Chicken Pox - Past Surgical History Male Surgical History: Reports: Kidney Stone Extraction, Lithotripsy (ESWL) Social & Family History - Family History Family Medical History: Noncontributory - Tobacco Use Smoking Status *Q: Current Every Day Smoker Years of Tobacco use: 10 Packs/Tins Daily: 1 Second Hand Smoke Exposure: Yes - Caffeine Use Caffeine Use: Reports: Coffee, Soda, Tea - Alcohol Use Days Per Week of Alcohol Use: 1 Number of Drinks Per Day: 1 Total Drinks Per Week: 1 Date of Last Drink: 09/08/18 - Recreational Drug Use Recreational Drug Use: Yes Drug Use in Last 12 Months: Yes Recreational Drug Type: Reports: Heroin, Marijuana/Hashish Recreational Drug Use Frequency: Daily H&P Review of Systems - Review of Systems: Review Of Systems: See Below General: Reports: Fever, Chills HEENT: Reports: No Symptoms Pulmonary: Reports: No Symptoms Cardiovascular: Reports: No Symptoms Gastrointestinal: Reports: No Symptoms Genitourinary: Reports: No Symptoms Musculoskeletal: Reports: Arm Pain Skin: Reports: Erythema Psychiatric: Reports: No Symptoms Neurological: Reports: No Symptoms Hematologic/Lymphatic: Reports: No Symptoms Immunologic: Reports: No Symptoms Exam - Exam Exam: See Below - Vital Signs Vital Signs: Last Vital Signs Temp 98.8 F 09/08/18 07:58 Pulse 81 09/08/18 07:58 Resp 18 09/08/18 07:58 BP 122/53 L 09/08/18 07:58 Pulse Ox 98 09/08/18 07:58 Weight: 59.602 kg - Exam General: Alert, Oriented, Cooperative HEENT: Conjunctiva Clear, EOMI, Mucosa Moist & [place], Posterior Pharynx Clear, Pupils Equal, Pupils Reactive Neck: Supple Lungs: Clear to Auscultation, Normal Respiratory Effort Cardiovascular: Regular Rate, Regular Rhythm GI/Abdominal Exam: Normal Bowel Sounds, Soft, Non-Tender, No Distention Extremities: No Pedal Edema, Other (limited flexion and extension of elbow joint due to pain, nv intact) Skin: Warm, Dry, Other (3x3 mass at left antecubital fossa, erythematous, tender to palpation with surrounding erythema, cellulitis improving based on pen markings from previous providers) Neuro Extensive - Motor, Sensory, Reflexes: CN II-XII Intact Psychiatric: Alert, Normal Affect, Normal Mood - Patient Data Lab Results Last 24 hrs: Laboratory Results - last 24 hr 09/08/18 09/08/18 09/08/18 Range/Units 02:20 02:20 02:20 WBC 13.59 H (4.0-11.0) K/uL RBC 4.84 (4.50-5.90) M/uL Hgb 14.3 (13.0-17.0) g/dL Hct 41.6 (38.0-50.0) % MCV 86.0 (80.0-98.0) fL MCH 29.5 (27.0-32.0) pg MCHC 34.4 (31.0-37.0) g/dL RDW Std Deviation 41.6 (28.0-62.0) fl RDW Coeff of Janelle 13 (11.0-15.0) % Plt Count 396 (150-400) K/uL MPV 8.90 (7.40-12.00) fL Neut % (Auto) 73.9 (48.0-80.0) % Lymph % (Auto) 13.8 L (16.0-40.0) % [place] % (Auto) 9.3 (0.0-15.0) % Eos % (Auto) 2.9 (0.0-7.0) % Baso % (Auto) 0.1 (0.0-1.5) % Neut # (Auto) 10.0 H (1.4-5.7) K/uL Lymph # (Auto) 1.9 (0.6-2.4) K/uL [place] # (Auto) 1.3 H (0.0-0.8) K/uL Eos # (Auto) 0.4 (0.0-0.7) K/uL Baso # (Auto) 0.0 (0.0-0.1) K/uL Nucleated RBC % 0.0 /100WBC Nucleated RBCs # 0 K/uL Lactate 1.5 (0.20-2.00) mmol/L Sodium 138 (136-148) mmol/L Potassium 3.9 (3.5-5.1) mmol/L Chloride 101 (98-107) mmol/L Carbon Dioxide 26.7 (21.0-32.0) mmol/L BUN 19 H (7.0-18.0) mg/dL Creatinine 1.0 (0.8-1.3) mg/dL Est Cr Clr Drug Dosing 91.73 mL/min Estimated GFR (MDRD) > 60.0 ml/min Glucose 154 H (74-106) mg/dL Calcium 8.7 (8.5-10.1) mg/dL Total Bilirubin 0.2 (0.2-1.0) mg/dL AST 12 L (15-37) IU/L ALT 17 (14-63) IU/L Alkaline Phosphatase 73 (46-116) U/L Total Protein 7.5 (6.4-8.2) g/dL Albumin 3.0 L (3.4-5.0) g/dL Globulin 4.5 H (2.6-4.0) g/dL Albumin/Globulin Ratio 0.7 L (0.9-1.6) Result Diagrams: 09/08/18 02:20 09/08/18 02:20 Problem List Initiated/Reviewed/Updated: Yes Orders Last 24hrs: Active Orders 24 hr Category Date Time Status Patient Status [ADT] Stat ADT 09/08/18 03:25 Active Notify Provider Consults [RC] ASDIRECTED Care 09/08/18 03:29 Active Vaccines to be Administered [RC] PER UNIT ROUTINE Care 09/08/18 03:32 Active Consult to Physician [CONS] Stat Cons 09/08/18 03:29 Active NPO [Nothing Per Oral Diet] [DIET] Diet 09/08/18 Breakfast Active CULTURE BLOOD [BC] Stat Lab 09/08/18 02:20 Received CULTURE BLOOD [BC] Stat Lab 09/08/18 02:38 Received VANCOMYCIN TROUGH [CHEM] Timed Lab 09/10/18 04:30 Ordered Morphine Med 09/08/18 05:09 Active 3 mg IVPUSH Q3H PRN Pharmacy to Dose - Vancomycin Med 09/08/18 05:15 Active 1 dose .XX ASDIRECTED Piperacillin/Tazobactam [Piperacil-Tazobact] 3.375 gm Med 09/08/18 05:15 Active Sodium Chloride 0.9% [Normal Saline] 50 ml IV Q6H Sodium Chloride 0.9% [Normal Saline] 1,000 ml Med 09/08/18 05:15 Active IV ASDIRECTED Sodium Chloride 0.9% [Saline Flush] Med 09/08/18 02:00 Active 10 ml FLUSH ASDIRECTED PRN Sodium Chloride 0.9% [Saline Flush] Med 09/08/18 02:00 Active 2.5 ml FLUSH ASDIRECTED PRN Vancomycin [Vancocin] 1 gm Med 09/08/18 05:30 Active Sodium Chloride 0.9% [Normal Saline] 250 ml IV Q12H Blood Culture x2 Reflex Set [OM.PC] Stat Ot 09/08/18 02:06 Ordered Saline Lock Insert [OM.PC] Stat Oth 09/08/18 01:59 Ordered Medication Orders Piperacillin Sod/Tazobactam (Sod 3.375 gm/ Sodium Chloride) 50 mls @ 100 mls/ hr IV Q6H [facility] Last Admin: 09/08/18 05:46 Dose: 100 mls/hr Sodium Chloride (Normal Saline) 1,000 mls @ 125 mls/hr IV ASDIRECTED [facility] Last Admin: 09/08/18 05:47 Dose: 125 mls/hr Vancomycin HCl 1 gm/ Sodium (Chloride) 250 mls @ 166 mls/hr IV Q12H [facility] Last Admin: 09/08/18 06:25 Dose: 166 mls/hr Morphine Sulfate (Morphine) 3 mg IVPUSH Q3H PRN PRN Reason: Pain Last Admin: 09/08/18 08:38 Dose: 3 mg Sodium Chloride (Saline Flush) 10 ml FLUSH ASDIRECTED PRN PRN Reason: Keep Vein Open Last Admin: 09/08/18 03:05 Dose: 10 ml Sodium Chloride (Saline Flush) 2.5 ml FLUSH ASDIRECTED PRN PRN Reason: Keep Vein Open Last Admin: 09/08/18 03:05 Dose: 2.5 ml Vancomycin HCl (Pharmacy To Dose - Vancomycin) 1 dose .XX ASDIRECTED [facility] Assessment/Plan Comment:: 1. Admit to inpatient 2. Code status-full 3. Vitals per routine 4. I/Os per routine 5. Diet-NPO, regular after surgery 6. DVT prophylaxis with lovenox 7. Left upper extremity abscess with improving cellulitis secondary to IV drug use- Dr. Carpenter consulted and plans to take patient to OR today for I&D. Dr. Carpenter plans to collect cultures. Blood cultures pending. Continue IV Zosyn and Vancomycin, IVF, and pain control.
--- NOTE | 2018-09-08 09:04 | PCM.PREANE ---
Preanesthetic Assessment - Anesthesia/Transfusion/Family Hx Anesthesia History: Prior Anesthesia Without Reaction Family History of Anesthesia Reaction: No Transfusion History: No Prior Transfusion(s) - Review of Systems General: No Symptoms Pulmonary: No Symptoms Cardiovascular: No Symptoms Gastrointestinal: No Symptoms Neurological: No Symptoms Other: Reports: None - Physical Assessment NPO Status Date: 09/07/18 NPO Status Time: 23:00 O2 Sat by Pulse Oximetry: 98 Respiratory Rate: 18 Vital Signs: Last Vital Signs Temp 37.1 C 09/08/18 07:58 Pulse 81 09/08/18 07:58 Resp 18 09/08/18 07:58 BP 122/53 L 09/08/18 07:58 Pulse Ox 98 09/08/18 07:58 Height: 1.68 m Weight: 59.602 kg ASA Class: 2E Mental Status: Alert & Oriented x3 Dentition: Reports: Normal Dentition - Lab Values: Laboratory Last Values WBC 13.59 K/uL (4.0-11.0) H 09/08/18 02:20 RBC 4.84 M/uL (4.50-5.90) 09/08/18 02:20 Hgb 14.3 g/dL (13.0-17.0) 09/08/18 02:20 Hct 41.6 % (38.0-50.0) 09/08/18 02:20 MCV 86.0 fL (80.0-98.0) 09/08/18 02:20 MCH 29.5 pg (27.0-32.0) 09/08/18 02:20 MCHC 34.4 g/dL (31.0-37.0) 09/08/18 02:20 RDW Std Deviation 41.6 fl (28.0-62.0) 09/08/18 02:20 RDW Coeff of Janelle 13 % (11.0-15.0) 09/08/18 02:20 Plt Count 396 K/uL (150-400) 09/08/18 02:20 MPV 8.90 fL (7.40-12.00) 09/08/18 02:20 Neut % (Auto) 73.9 % (48.0-80.0) 09/08/18 02:20 Lymph % (Auto) 13.8 % (16.0-40.0) L 09/08/18 02:20 [place] % (Auto) 9.3 % (0.0-15.0) 09/08/18 02:20 Eos % (Auto) 2.9 % (0.0-7.0) 09/08/18 02:20 Baso % (Auto) 0.1 % (0.0-1.5) 09/08/18 02:20 Neut # (Auto) 10.0 K/uL (1.4-5.7) H 09/08/18 02:20 Lymph # (Auto) 1.9 K/uL (0.6-2.4) 09/08/18 02:20 [place] # (Auto) 1.3 K/uL (0.0-0.8) H 09/08/18 02:20 Eos # (Auto) 0.4 K/uL (0.0-0.7) 09/08/18 02:20 Baso # (Auto) 0.0 K/uL (0.0-0.1) 09/08/18 02:20 Nucleated RBC % 0.0 /100WBC 09/08/18 02:20 Nucleated RBCs # 0 K/uL 09/08/18 02:20 Lactate 1.5 mmol/L (0.20-2.00) 09/08/18 02:20 Sodium 138 mmol/L (136-148) 09/08/18 02:20 Potassium 3.9 mmol/L (3.5-5.1) 09/08/18 02:20 Chloride 101 mmol/L (98-107) 09/08/18 02:20 Carbon Dioxide 26.7 mmol/L (21.0-32.0) 09/08/18 02:20 BUN 19 mg/dL (7.0-18.0) H 09/08/18 02:20 Creatinine 1.0 mg/dL (0.8-1.3) 09/08/18 02:20 Est Cr Clr Drug Dosing 91.73 mL/min 09/08/18 02:20 Estimated GFR (MDRD) > 60.0 ml/min 09/08/18 02:20 Glucose 154 mg/dL (74-106) H 09/08/18 02:20 Calcium 8.7 mg/dL (8.5-10.1) 09/08/18 02:20 Total Bilirubin 0.2 mg/dL (0.2-1.0) 09/08/18 02:20 AST 12 IU/L (15-37) L 09/08/18 02:20 ALT 17 IU/L (14-63) 09/08/18 02:20 Alkaline Phosphatase 73 U/L (46-116) 09/08/18 02:20 Total Protein 7.5 g/dL (6.4-8.2) 09/08/18 02:20 Albumin 3.0 g/dL (3.4-5.0) L 09/08/18 02:20 Globulin 4.5 g/dL (2.6-4.0) H 09/08/18 02:20 Albumin/Globulin Ratio 0.7 (0.9-1.6) L 09/08/18 02:20 - Allergies Allergies/Adverse Reactions: Allergies Allergy/AdvReac Type Severity Reaction Status Date / Time No Known Allergies Allergy Verified 09/08/18 01:49 - Acknowledgements Pt an Appropriate Candidate for the Planned Anesthesia: Yes Alternatives and Risks of Anesthesia Discussed w Pt/Guardian: Yes Pt/Guardian Understands and Agrees with Anesthesia Plan: Yes PreAnesthesia Questionnaire - Past Health History Medical/Surgical History: Denies Medical/Surgical History Genitourinary History: Reports: Renal Calculus Psychiatric History: Reports: None Dermatologic History: Reports: Cellulitis - Infectious Disease History Infectious Disease History: Reports: Chicken Pox - Past Surgical History Male Surgical History: Reports: Kidney Stone Extraction, Lithotripsy (ESWL) - SUBSTANCE USE Smoking Status *Q: Current Every Day Smoker Tobacco Use Within Last Twelve Months: Cigarettes Second Hand Smoke Exposure: Yes Days Per Week of Alcohol Use: 1 Number of Drinks Per Day: 1 Total Drinks Per Week: 1 Date of Last Drink: 09/08/18 Recreational Drug Use History: Yes Recreational Drug Type: Reports: Heroin, Marijuana/Hashish - HOME MEDS Home Medications: Home Meds Sulfamethoxazole/Trimethoprim [Bactrim 400-80 MG] 1 tab PO BID 09/06/18 [History ] - CURRENT (IN HOUSE) MEDS Current Meds: Current Medications Piperacillin Sod/Tazobactam (Sod 3.375 gm/ Sodium Chloride) 50 mls @ 100 mls/ hr IV Q6H [facility] Last Admin: 09/08/18 05:46 Dose: 100 mls/hr Sodium Chloride (Normal Saline) 1,000 mls @ 125 mls/hr IV ASDIRECTED [facility] Last Admin: 09/08/18 05:47 Dose: 125 mls/hr Vancomycin HCl 1 gm/ Sodium (Chloride) 250 mls @ 166 mls/hr IV Q12H [facility] Last Admin: 09/08/18 06:25 Dose: 166 mls/hr Morphine Sulfate (Morphine) 3 mg IVPUSH Q3H PRN PRN Reason: Pain Last Admin: 09/08/18 08:38 Dose: 3 mg Sodium Chloride (Saline Flush) 10 ml FLUSH ASDIRECTED PRN PRN Reason: Keep Vein Open Last Admin: 09/08/18 03:05 Dose: 10 ml Sodium Chloride (Saline Flush) 2.5 ml FLUSH ASDIRECTED PRN PRN Reason: Keep Vein Open Last Admin: 09/08/18 03:05 Dose: 2.5 ml Vancomycin HCl (Pharmacy To Dose - Vancomycin) 1 dose .XX ASDIRECTED [facility] Discontinued Medications Diphtheria/Tetanus/Acell Pertussis (Adacel) 0.5 ml IM .ONCE ONE Stop: 09/08/18 03:33 Last Admin: 09/08/18 03:58 Dose: 0.5 ml Ertapenem 1 gm/ Sodium (Chloride) 50 mls @ 100 mls/hr IV ONETIME ONE Stop: 09/08/18 02:30 Last Admin: 09/08/18 03:04 Dose: 100 mls/hr Dextrose/Sodium Chloride (Dextrose 5%-1/2 Ns) 1,000 mls @ 125 mls/hr IV ASDIRECTED [facility] Last Admin: 09/08/18 03:58 Dose: 125 mls/hr Ketorolac Tromethamine (Toradol) 30 mg IVPUSH ONETIME ONE Stop: 09/08/18 02:02 Last Admin: 09/08/18 02:18 Dose: 30 mg Morphine Sulfate (Morphine) 4 mg IVPUSH ONETIME ONE Stop: 09/08/18 02:07 Last Admin: 09/08/18 02:19 Dose: 4 mg
--- NOTE | 2018-09-08 09:48 | PCM.OPNOTE ---
- General Post-Op/Procedure Note Date of Surgery/Procedure: 09/08/18 Operative Procedure(s): irrigation and debridement left elbow to subcutaneous tissues Findings: purulence, no nonviable tissue Pre Op Diagnosis: left elbow subcutaneous abscess Post-Op Diagnosis: same Anesthesia Technique: General LMA Primary Surgeon: Michael Godfrey Mai Pathology: swabs for culture EBL in mLs: 5 Complications: none Condition: Stable Free Text/Narrative:: Intake & Output 09/07/18 09/08/18 09/08/18 22:59 06:59 14:59 Intake Total 50 Balance 50
--- NOTE | 2018-09-08 11:31 | PCM.POSTAN ---
POST ANESTHESIA ASSESSMENT - MENTAL STATUS Mental Status: Alert - VITAL SIGNS Pulse Rate: 74 SaO2: 98 Resp Rate: 74 Blood Pressure: 119/50 Temperature: 36.5 C - RESPIRATORY Respiratory Status: Respiratory Rate WNL - CARDIOVASCULAR CV Status: Pulse Rate WNL - GASTROINTESTINAL GI Status: No Symptoms - POST OP HYDRATION Hydration Status: Adequate & Stable
[2018-09-08] MEDS: Enoxaparin 40 MG/0.4 ML Syringe SUBCUT SCH (12:25)
--- NOTE | 2018-09-08 16:36 | OR ---
SURGEON: Michael Carpenter MD DATE OF PROCEDURE: 09/08/2018 PREOPERATIVE DIAGNOSIS: Left elbow subcutaneous abscess. POSTOPERATIVE DIAGNOSIS: Left elbow subcutaneous abscess. OPERATION PERFORMED: Irrigation and debridement, left elbow to subcutaneous tissues. ANESTHESIA: General with LMA. COMPLICATIONS: None. ESTIMATED BLOOD LOSS: 5 mL. SPECIMENS: Swabs for culture. INDICATIONS: The patient is a 38-year-old male, who is IV meth user who shot up 1 week ago. He was brought to the ER several times. He was admitted in the early hours this morning for abscess. Ultrasound and CT showed abscess. He has been on antibiotics. He wished to undergo above procedure. He understands the risks, benefits, alternatives, and complications of the procedure including, but not limited to, infection, neurovascular injury, continued pain and/or symptoms, continued infection, need for postoperative protocol with wet-to-dry dressings and packing and he wished to proceed. DESCRIPTION OF PROCEDURE: The patient was seen in the preoperative area. The operative site was marked. The patient was transferred to the operating room and placed supine on the operating room table. General anesthesia was induced and an LMA was placed. He had already been on antibiotics. The left upper extremity was prepped and draped in the usual sterile fashion using alcohol followed by ChloraPrep. A formal time-out was taken, identifying the correct patient, procedure, and extremity. On the anteromedial aspect of the elbow, a 3 cm incision was made longitudinally. There was immediate expression of purulence. Aerobic and anaerobic swabs were placed in these and sent off for culture. Blunt dissection was only performed, purulence was expressed, and then it was irrigated with cystoscopy tubing 3 L periodically in between. It was looked for any nonviable tissue. There was a small amount of fibrillation and scar tissue surrounding the cavity, which was removed with pickups. His veins in the anterior aspect of the arm were intact and were not bleeding. After complete irrigation, it was packed with half-inch iodophor and a sterile dressing was placed. He was extubated in the operating room, transferred to the recovery room in stable condition. Sponge and needle counts were correct at the end of the case. There were no complications. Packing will be changed tomorrow. He will continue on antibiotics and follow up in clinic in 1 week. CHAU ESPARZA /[id number]
--- NOTE | 2018-09-08 20:01 | PCM48HPAN ---
Post Anesthesia Note - EVALUATION WITHIN 48HRS OF ANESTHETIC Vital Signs in Normal Range: Yes Patient Participated in Evaluation: Yes Respiratory Function Stable: Yes Airway Patent: Yes Cardiovascular Function Stable: Yes Hydration Status Stable: Yes Pain Control Satisfactory: Yes Nausea and Vomiting Control Satisfactory: Yes Mental Status Recovered: Yes Pulse Rate: 74 Resp Rate: 18 Temperature: 36.5 C Blood Pressure: 119/50 - COMMENTS/OBSERVATIONS Free Text/Narrative:: pt comfortable at this time. no signs or symptoms of anesthesia related problems.
[2018-09-08] MEDS: oxyCODONE 5 MG Tab PO PRN (23:06)
[2018-09-09] MEDS: Piperacillin/Tazobactam 3.375 GM in Sodium Chloride 0.9% 50 ML IV SCH ×4 (05:01→23:15)
[2018-09-09] MEDS: Sodium Chloride 0.9% 1,000 ML IV SCH ×2 (06:17→16:33)
[2018-09-09 06:56] LABS: CHLORIDE,CL 107 mmol/L (98-107); SODIUM,NA 140 mmol/L (136-148)
[2018-09-09] MEDS: oxyCODONE 5 MG Tab PO PRN ×3 (08:29→23:15)
[2018-09-09] MEDS: Morphine 4 MG/ML Syringe IVPUSH PRN (09:37)
[2018-09-09] MEDS: Enoxaparin 40 MG/0.4 ML Syringe SUBCUT SCH (11:11)
--- NOTE | 2018-09-09 19:08 | PCM.PN ---
- General Info Date of Service: 09/09/18 - Review of Systems Systems Review Comment:: reports pain at site of I&D - Patient Data Vitals - Most Recent: Last Vital Signs Temp 36.9 C 09/09/18 16:00 Pulse 82 09/09/18 16:00 Resp 18 09/09/18 16:00 BP 111/57 L 09/09/18 16:00 Pulse Ox 97 09/09/18 16:00 Weight - Most Recent: 59.602 kg I&O - Last 24 Hours: Intake & Output 09/09/18 09/09/18 09/09/18 06:59 14:59 22:59 Intake Total 3552 1300 Output Total 2 Balance 3550 1300 Lab Results Last 24 Hours: Laboratory Results - last 24 hr 09/09/18 09/09/18 Range/Units 06:17 06:17 WBC 15.03 H (4.0-11.0) K/uL RBC 3.96 L (4.50-5.90) M/uL Hgb 11.6 L (13.0-17.0) g/dL Hct 34.2 L (38.0-50.0) % MCV 86.4 (80.0-98.0) fL MCH 29.3 (27.0-32.0) pg MCHC 33.9 (31.0-37.0) g/dL RDW Std Deviation 41.8 (28.0-62.0) fl RDW Coeff of Janelle 13 (11.0-15.0) % Plt Count 339 (150-400) K/uL MPV 9.00 (7.40-12.00) fL Neut % (Auto) 76.7 (48.0-80.0) % Lymph % (Auto) 13.8 L (16.0-40.0) % [place] % (Auto) 8.7 (0.0-15.0) % Eos % (Auto) 0.7 (0.0-7.0) % Baso % (Auto) 0.1 (0.0-1.5) % Neut # (Auto) 11.5 H (1.4-5.7) K/uL Lymph # (Auto) 2.1 (0.6-2.4) K/uL [place] # (Auto) 1.3 H (0.0-0.8) K/uL Eos # (Auto) 0.1 (0.0-0.7) K/uL Baso # (Auto) 0.0 (0.0-0.1) K/uL Nucleated RBC % 0.0 /100WBC Nucleated RBCs # 0 K/uL Sodium 140 (136-148) mmol/L Potassium 3.7 (3.5-5.1) mmol/L Chloride 107 (98-107) mmol/L Carbon Dioxide 24.0 (21.0-32.0) mmol/L BUN 11 (7.0-18.0) mg/dL Creatinine 0.9 (0.8-1.3) mg/dL Est Cr Clr Drug Dosing 95.66 mL/min Estimated GFR (MDRD) > 60.0 ml/min Glucose 147 H (74-106) mg/dL Calcium 8.1 L (8.5-10.1) mg/dL James Results Last 24 Hours: Microbiology 09/08/18 02:38 Aerobic Blood Culture - Preliminary Blood - Venous - Lab Draw NO GROWTH AFTER 1 DAY Anaerobic Blood Culture - Preliminary NO GROWTH AFTER 1 DAY 09/08/18 02:20 Aerobic Blood Culture - Preliminary Blood - Venous NO GROWTH AFTER 1 DAY Anaerobic Blood Culture - Preliminary NO GROWTH AFTER 1 DAY Med Orders - Current: Current Medications Enoxaparin Sodium (Lovenox) 40 mg SUBCUT Q24H [facility] Last Admin: 09/09/18 11:11 Dose: 40 mg Piperacillin Sod/Tazobactam (Sod 3.375 gm/ Sodium Chloride) 50 mls @ 100 mls/ hr IV Q6H [facility] Last Admin: 09/09/18 16:29 Dose: 100 mls/hr Sodium Chloride (Normal Saline) 1,000 mls @ 125 mls/hr IV ASDIRECTED [facility] Last Admin: 09/09/18 16:33 Dose: 125 mls/hr Vancomycin HCl 1 gm/ Sodium (Chloride) 250 mls @ 166 mls/hr IV Q12H [facility] Last Admin: 09/09/18 17:19 Dose: 166 mls/hr Morphine Sulfate (Morphine) 3 mg IVPUSH Q3H PRN PRN Reason: Pain Last Admin: 09/09/18 09:37 Dose: 3 mg Oxycodone HCl (Oxycodone) 5 mg PO Q6H PRN PRN Reason: Pain Last Admin: 09/09/18 16:41 Dose: 5 mg Sodium Chloride (Saline Flush) 10 ml FLUSH ASDIRECTED PRN PRN Reason: Keep Vein Open Last Admin: 09/08/18 03:05 Dose: 10 ml Sodium Chloride (Saline Flush) 2.5 ml FLUSH ASDIRECTED PRN PRN Reason: Keep Vein Open Last Admin: 09/08/18 03:05 Dose: 2.5 ml Vancomycin HCl (Pharmacy To Dose - Vancomycin) 1 dose .XX ASDIRECTED [facility] Discontinued Medications Diphtheria/Tetanus/Acell Pertussis (Adacel) 0.5 ml IM .ONCE ONE Stop: 09/08/18 03:33 Last Admin: 09/08/18 03:58 Dose: 0.5 ml Ertapenem 1 gm/ Sodium (Chloride) 50 mls @ 100 mls/hr IV ONETIME ONE Stop: 09/08/18 02:30 Last Admin: 09/08/18 03:04 Dose: 100 mls/hr Dextrose/Sodium Chloride (Dextrose 5%-1/2 Ns) 1,000 mls @ 125 mls/hr IV ASDIRECTED [facility] Last Admin: 09/08/18 03:58 Dose: 125 mls/hr Ketorolac Tromethamine (Toradol) 30 mg IVPUSH ONETIME ONE Stop: 09/08/18 02:02 Last Admin: 09/08/18 02:18 Dose: 30 mg Morphine Sulfate (Morphine) 4 mg IVPUSH ONETIME ONE Stop: 09/08/18 02:07 Last Admin: 09/08/18 02:19 Dose: 4 mg - Exam General: Alert, Oriented Cardiovascular: Regular Rate, Regular Rhythm GI/Abdominal Exam: Normal Bowel Sounds, Soft, Non-Tender Extremities: Other (edema and erythema of left arm improving, minimal drainage noted at I&D site) - Problem List Review Problem List Initiated/Reviewed/Updated: Yes - My Orders Last 24 Hours: My Active Orders 09/08/18 22:52 oxyCODONE 5 mg PO Q6H PRN - Plan Plan:: 38 yo male with pmh of IV drug use admitted for left upper extremity abscess and cellulitis. We will continue IV antibiotics. Wound was repacked today. Awaiting results of culture.
[2018-09-10] MEDS: Sodium Chloride 0.9% 1,000 ML IV SCH ×3 (02:00→22:59)
[2018-09-10] MEDS: oxyCODONE 5 MG Tab PO PRN ×3 (05:15→21:30)
[2018-09-10] MEDS: Piperacillin/Tazobactam 3.375 GM in Sodium Chloride 0.9% 50 ML IV SCH ×4 (05:20→23:45)
[2018-09-10] MEDS ORDERED: Sodium Chloride 0.9% 250 ML ONE (06:43)
[2018-09-10 08:44] LABS: CHLORIDE,CL 103 mmol/L (98-107); SODIUM,NA 139 mmol/L (136-148)
--- NOTE | 2018-09-10 08:52 | PCM.PN ---
- General Info Date of Service: 09/10/18 Admission Dx/Problem (Free Text): Admission Diagnosis/Problem Admission Diagnosis/Problem Abscess Subjective Update: Doing ok this morning. Pain is tolerable with pain medications. NO chest pain or SOB. Had BM today, a little loose. Functional Status: Reports: Pain Controlled, Tolerating Diet, Ambulating, Urinating - Review of Systems General: Reports: No Symptoms. Denies: Fever, Weakness, Fatigue HEENT: Reports: No Symptoms. Denies: Headaches, Sore Throat Pulmonary: Reports: No Symptoms. Denies: Shortness of Breath Cardiovascular: Reports: No Symptoms. Denies: Chest Pain Gastrointestinal: Reports: No Symptoms. Denies: Abdominal Pain, Nausea, Vomiting Genitourinary: Reports: No Symptoms Musculoskeletal: Reports: No Symptoms Skin: Reports: No Symptoms, Other (redness to arm stable, no change, tenderness to upper bicep region) Neurological: Reports: No Symptoms Psychiatric: Reports: No Symptoms - Patient Data Vitals - Most Recent: Last Vital Signs Temp 100.0 F 09/10/18 04:15 Pulse 75 09/10/18 04:15 Resp 18 09/10/18 04:15 BP 121/62 09/10/18 04:15 Pulse Ox 96 09/10/18 04:15 Weight - Most Recent: 59.602 kg I&O - Last 24 Hours: Intake & Output 09/09/18 09/10/18 09/10/18 22:59 06:59 14:59 Intake Total 1700 Balance 1700 Lab Results Last 24 Hours: Laboratory Results - last 24 hr 09/10/18 09/10/18 09/10/18 Range/Units 04:40 08:16 08:16 WBC 13.21 H (4.0-11.0) K/uL RBC 4.68 (4.50-5.90) M/uL Hgb 13.7 (13.0-17.0) g/dL Hct 40.5 (38.0-50.0) % MCV 86.5 (80.0-98.0) fL MCH 29.3 (27.0-32.0) pg MCHC 33.8 (31.0-37.0) g/dL RDW Std Deviation 42.0 (28.0-62.0) fl RDW Coeff of Janelle 13 (11.0-15.0) % Plt Count 402 H (150-400) K/uL MPV 8.80 (7.40-12.00) fL Neut % (Auto) 71.5 (48.0-80.0) % Lymph % (Auto) 17.4 (16.0-40.0) % [place] % (Auto) 8.8 (0.0-15.0) % Eos % (Auto) 2.0 (0.0-7.0) % Baso % (Auto) 0.3 (0.0-1.5) % Neut # (Auto) 9.5 H (1.4-5.7) K/uL Lymph # (Auto) 2.3 (0.6-2.4) K/uL [place] # (Auto) 1.2 H (0.0-0.8) K/uL Eos # (Auto) 0.3 (0.0-0.7) K/uL Baso # (Auto) 0.0 (0.0-0.1) K/uL Nucleated RBC % 0.0 /100WBC Nucleated RBCs # 0 K/uL Sodium 139 (136-148) mmol/L Potassium 4.2 (3.5-5.1) mmol/L Chloride 103 (98-107) mmol/L Carbon Dioxide 27.0 (21.0-32.0) mmol/L BUN 9 (7.0-18.0) mg/dL Creatinine 0.9 (0.8-1.3) mg/dL Est Cr Clr Drug Dosing 95.66 mL/min Estimated GFR (MDRD) > 60.0 ml/min Glucose 94 (74-106) mg/dL Calcium 8.9 (8.5-10.1) mg/dL Vancomycin Trough 6.0 (5.0-10.0) ug/mL James Results Last 24 Hours: Microbiology 09/08/18 02:38 Aerobic Blood Culture - Preliminary Blood - Venous - Lab Draw NO GROWTH AFTER 2 DAYS Anaerobic Blood Culture - Preliminary NO GROWTH AFTER 2 DAYS 09/08/18 02:20 Aerobic Blood Culture - Preliminary Blood - Venous NO GROWTH AFTER 2 DAYS Anaerobic Blood Culture - Preliminary NO GROWTH AFTER 2 DAYS Med Orders - Current: Current Medications Enoxaparin Sodium (Lovenox) 40 mg SUBCUT Q24H [facility] Last Admin: 09/09/18 11:11 Dose: 40 mg Piperacillin Sod/Tazobactam (Sod 3.375 gm/ Sodium Chloride) 50 mls @ 100 mls/ hr IV Q6H [facility] Last Admin: 09/10/18 05:20 Dose: 100 mls/hr Sodium Chloride (Normal Saline) 1,000 mls @ 125 mls/hr IV ASDIRECTED [facility] Last Admin: 09/10/18 02:00 Dose: 125 mls/hr Vancomycin HCl 1 gm/ Sodium (Chloride) 250 mls @ 166 mls/hr IV Q8H [facility] Last Admin: 09/10/18 06:45 Dose: 166 mls/hr Morphine Sulfate (Morphine) 3 mg IVPUSH Q3H PRN PRN Reason: Pain Last Admin: 09/09/18 09:37 Dose: 3 mg Oxycodone HCl (Oxycodone) 5 mg PO Q6H PRN PRN Reason: Pain Last Admin: 09/10/18 05:15 Dose: 5 mg Sodium Chloride (Saline Flush) 10 ml FLUSH ASDIRECTED PRN PRN Reason: Keep Vein Open Last Admin: 09/08/18 03:05 Dose: 10 ml Sodium Chloride (Saline Flush) 2.5 ml FLUSH ASDIRECTED PRN PRN Reason: Keep Vein Open Last Admin: 09/08/18 03:05 Dose: 2.5 ml Vancomycin HCl (Pharmacy To Dose - Vancomycin) 1 dose .XX ASDIRECTED [facility] Discontinued Medications Diphtheria/Tetanus/Acell Pertussis (Adacel) 0.5 ml IM .ONCE ONE Stop: 09/08/18 03:33 Last Admin: 09/08/18 03:58 Dose: 0.5 ml Ertapenem 1 gm/ Sodium (Chloride) 50 mls @ 100 mls/hr IV ONETIME ONE Stop: 09/08/18 02:30 Last Admin: 09/08/18 03:04 Dose: 100 mls/hr Dextrose/Sodium Chloride (Dextrose 5%-1/2 Ns) 1,000 mls @ 125 mls/hr IV ASDIRECTED [facility] Last Admin: 09/08/18 03:58 Dose: 125 mls/hr Vancomycin HCl 1 gm/ Sodium (Chloride) 250 mls @ 166 mls/hr IV Q12H [facility] Last Admin: 09/10/18 06:35 Dose: Not Given Vancomycin HCl 1 gm/ Sodium (Chloride) 250 mls @ 166 mls/hr IV Q8H [facility] Sodium Chloride (Normal Saline) Confirm Administered Dose 250 mls @ as directed .ROUTE .STK-MED ONE Stop: 09/10/18 06:44 Last Admin: 09/10/18 06:45 Dose: Not Given Ketorolac Tromethamine (Toradol) 30 mg IVPUSH ONETIME ONE Stop: 09/08/18 02:02 Last Admin: 09/08/18 02:18 Dose: 30 mg Morphine Sulfate (Morphine) 4 mg IVPUSH ONETIME ONE Stop: 09/08/18 02:07 Last Admin: 09/08/18 02:19 Dose: 4 mg - Exam General: Alert, Oriented, Cooperative, No Acute Distress HEENT: Pupils Equal, Pupils Reactive Lungs: Clear to Auscultation, Normal Respiratory Effort Cardiovascular: Regular Rate, Regular Rhythm GI/Abdominal Exam: Normal Bowel Sounds, Soft, Non-Tender Extremities: Normal Inspection, Normal Range of Motion, Non-Tender Wound/Incisions: Erythema Improving (tenderness to Bicep erythema, induration noted. Reports this is appearing better and less tender.) Psy/Mental Status: Alert, Normal Affect, Normal Mood - Problem List & Annotations (1) Cellulitis of left forearm SNOMED Code(s): 38810783 Code(s): L03.114 - CELLULITIS OF LEFT UPPER LIMB Status: Acute Current Visit: Yes (2) Substance abuse SNOMED Code(s): 82521306 Code(s): F19.10 - OTHER PSYCHOACTIVE SUBSTANCE ABUSE, UNCOMPLICATED Status : Chronic Current Visit: Yes - Problem List Review Problem List Initiated/Reviewed/Updated: Yes - Plan Plan:: 38 yo male with pmh of IV drug use admitted for left upper extremity abscess and cellulitis. 1. Cellulitis with abscess to L arm: Improving. Leukocytosis improving. BC negative, wound cultures pending. Continue Vancomycin and Zosyn. Daily dressing change order in, pre-medicate with pain medication. VTE prophylaxis: Lovenox Dispo: 1-2 days pending cultures.
[2018-09-10] MEDS: Morphine 4 MG/ML Syringe IVPUSH PRN ×2 (09:51→14:51)
[2018-09-10] MEDS: Enoxaparin 40 MG/0.4 ML Syringe SUBCUT SCH (11:22)
[2018-09-11] MEDS: Piperacillin/Tazobactam 3.375 GM in Sodium Chloride 0.9% 50 ML IV SCH ×2 (05:00→11:29)
[2018-09-11] MEDS: oxyCODONE 5 MG Tab PO PRN (05:08)
[2018-09-11 06:10] LABS: CHLORIDE,CL 107 mmol/L (98-107); SODIUM,NA 140 mmol/L (136-148)
[2018-09-11] MEDS: Sodium Chloride 0.9% 1,000 ML IV SCH (09:24)
[2018-09-11] MEDS: Morphine 4 MG/ML Syringe IVPUSH PRN (09:27)
--- NOTE | 2018-09-11 11:04 | PCM.DCSUM1 ---
<Asuncion Sow M - Last Filed: 09/11/18 11:10> Discharge Summary - Hospital Course Brief History: The patient is a 38 year old male who presented to the ER last night with increased swelling, erythema, and pain of left upper extremity. Patient reports he injected Dilaudid 1 weeks ago while in [place] into the left antecubital fossa. He then return back to [place] and started developing redness in the area. He was seen several times in the ER this week where he received IV antibiotics but refused admission. He was sent home on Bactrim which he reports he has been taking. He now has a mass at the antecubital fossa that is very tender and is limiting his ability to flex and extended his arm at the elbow. He reports associated fever/chills but denies chest pain, shortness of breath, abdominal pain, nausea/vomiting, or diarrhea. He denies injecting any other substances in the past week. In the ER, work up showed a leukocytosis of 13.5 (white count at earlier ER visits was 15), lactate within normal limits at 1.5, CMP wnl, and blood cultures are pending. Imaging included elbow x-ray which showed soft tissue edema medial to elbow joint, and an ultrasound which found a 5 cm complex fluid collection medial to elbow joint. The ER provider, consult bahman Hong Mai, who requested a CT of the extremity and saw the patient on the floor this morning. CT of the extremity showed a 3x2.5 cm complex fluid collection. Diagnosis: Stroke: No Modified Shivani Scale: No Symptoms at All Modified Mcleod Scale Score: 0 - Discharge Data Discharge Date: 09/11/18 Discharge Disposition: Home, Self-Care 01 Condition: Stable - Discharge Diagnosis/Problem(s) (1) Cellulitis of left forearm SNOMED Code(s): 31344551 ICD Code: L03.114 - CELLULITIS OF LEFT UPPER LIMB Status: Acute (2) Substance abuse SNOMED Code(s): 31523203 ICD Code: F19.10 - OTHER PSYCHOACTIVE SUBSTANCE ABUSE, UNCOMPLICATED Status : Chronic (3) Abscess SNOMED Code(s): 050928232 ICD Code: L02.91 - CUTANEOUS ABSCESS, UNSPECIFIED Status: Acute - Patient Summary/Data Operative Procedure(s) Performed: irrigation and debridement left elbow to subcutaneous tissues Consults: Consultations 09/08/18 03:29 Consult to Physician [CONS] Stat - Patient Instructions Diet: Regular Diet as Tolerated Activity: As Tolerated Showering/Bathing: May Shower Wound/Incision Care: Keep Operative Site/Wound Site Clean and Dry, Change Dressing Daily Notify Provider of: Fever, Increased Pain, Swelling and Redness, Drainage, Nausea and/or Vomiting Other/Special Instructions: Daily dressing changes at hospital, check in at admissions. Nurse will administer pain pill 30 minutes prior to dressing change. - Discharge Plan *PRESCRIPTION DRUG MONITORING PROGRAM REVIEWED*: Yes *COPY OF PRESCRIPTION DRUG MONITORING REPORT IN PATIENT EVELIN: Yes Prescriptions/Med Rec: Acetaminophen [Tylenol] 650 mg PO Q4H PRN #1 tab PRN Reason: Pain Amoxicillin/Potassium Clav [Augmentin 875-125 Tablet] 1 each PO BID #20 tablet Clindamycin HCl 300 mg PO QID #40 capsule Ibuprofen [Motrin] 400 mg PO Q6H PRN #1 tab PRN Reason: Pain oxyCODONE 5 mg PO DAILY #5 tab Home Medications: Home Meds Acetaminophen [Tylenol] 650 mg PO Q4H PRN #1 tab 09/11/18 [Rx] Amoxicillin/Potassium Clav [Augmentin 875-125 Tablet] 1 each PO BID #20 tablet 09/11/18 [Rx] Clindamycin HCl 300 mg PO QID #40 capsule 09/11/18 [Rx] Ibuprofen [Motrin] 400 mg PO Q6H PRN #1 tab 09/11/18 [Rx] oxyCODONE 5 mg PO DAILY #5 tab 09/11/18 [Rx] Oxygen Therapy Mode: Room Air Patient Handouts: Amoxicillin; Clavulanic Acid tablets, Ibuprofen tablets and capsules, Clindamycin capsules, Substance Use Disorder, Cellulitis, Adult, Easy- to-Read, Acetaminophen tablets or caplets Referrals: Charmaine Haider SENIOR CLINICAL PROJECT MANAGER [Nurse Practitioner] - 09/14/18 10:40 am - Discharge Summary/Plan Comment DC Time >30 min.: No Discharge Summary/Plan Comment: Discharge Diagnoses: Cellulitis and abscess to L antecubital fossa Substance abuse Douglas was admitted with increasing erythema and pain to L AC fossa. Imaging revealed abscess. Dr Carpenter, orthopedics was consulted and took Douglas to the OR for I&D. He has been treated with Vancomycin and Zosyn while cultures were pending. BC remained negative. Today leukocytosis has improved to normal. We have continued daily dressing changes with packing removal. He has pain with dressing changes. Today he is eager to go home. Cultures returned with staph epi , non a or b strep and gram negative growing in anaerobic culture. He will be sent home with Augmentin and Clindamycin for 10 more days. He will return daily for daily dressing changes. He will be given a dose of Oxycodone 30 minutes prior to dressing change. He was encouraged to take Tylenol or Motrin at home for pain relief. He is to follow up in Orthopedic clinic end of this week or early next week. They may change dressing change frequency pending improvement of wound. He is to return to ED or clinic if concerns should arise. - General Info Date of Service: 09/11/18 Admission Dx/Problem (Free Text: Admission Diagnosis/Problem Admission Diagnosis/Problem Abscess Subjective Update: Doing well today. Pain has improved. Still has significant pain with dressing change. No fevers. Very eager to go home today. Functional Status: Reports: Pain Controlled, Tolerating Diet, Ambulating, Urinating - Review of Systems General: Reports: No Symptoms. Denies: Fever, Weakness HEENT: Reports: No Symptoms Pulmonary: Reports: No Symptoms Cardiovascular: Reports: No Symptoms Gastrointestinal: Reports: No Symptoms. Denies: Abdominal Pain, Diarrhea, Nausea, Vomiting Genitourinary: Reports: No Symptoms. Denies: Dysuria, Frequency Skin: Reports: Other (wound to L AC, dressing intact, less pain today ) Neurological: Reports: No Symptoms Psychiatric: Reports: No Symptoms - Patient Data Vitals - Most Recent: Last Vital Signs Temp 98.2 F 09/11/18 08:29 Pulse 74 09/11/18 08:29 Resp 16 09/11/18 08:29 BP 113/67 09/11/18 08:29 Pulse Ox 97 09/11/18 08:29 Weight - Most Recent: 59.602 kg I&O - Last 24 hours: Intake & Output 09/10/18 09/11/18 09/11/18 22:59 06:59 14:59 Intake Total 1366 400 Output Total 750 650 Balance 616 -250 Lab Results - Last 24 hrs: Laboratory Results - last 24 hr 09/11/18 09/11/18 Range/Units 05:40 05:40 WBC 8.59 (4.0-11.0) K/uL RBC 4.28 L (4.50-5.90) M/uL Hgb 12.3 L (13.0-17.0) g/dL Hct 37.0 L (38.0-50.0) % MCV 86.4 (80.0-98.0) fL MCH 28.7 (27.0-32.0) pg MCHC 33.2 (31.0-37.0) g/dL RDW Std Deviation 41.6 (28.0-62.0) fl RDW Coeff of Janelle 13 (11.0-15.0) % Plt Count 369 (150-400) K/uL MPV 8.50 (7.40-12.00) fL Neut % (Auto) 60.9 (48.0-80.0) % Lymph % (Auto) 23.7 (16.0-40.0) % [place] % (Auto) 11.6 (0.0-15.0) % Eos % (Auto) 3.5 (0.0-7.0) % Baso % (Auto) 0.3 (0.0-1.5) % Neut # (Auto) 5.2 (1.4-5.7) K/uL Lymph # (Auto) 2.0 (0.6-2.4) K/uL [place] # (Auto) 1.0 H (0.0-0.8) K/uL Eos # (Auto) 0.3 (0.0-0.7) K/uL Baso # (Auto) 0.0 (0.0-0.1) K/uL Nucleated RBC % 0.0 /100WBC Nucleated RBCs # 0 K/uL Sodium 140 (136-148) mmol/L Potassium 4.1 (3.5-5.1) mmol/L Chloride 107 (98-107) mmol/L Carbon Dioxide 27.2 (21.0-32.0) mmol/L BUN 12 (7.0-18.0) mg/dL Creatinine 0.8 (0.8-1.3) mg/dL Est Cr Clr Drug Dosing 107.61 mL/min Estimated GFR (MDRD) > 60.0 ml/min Glucose 110 H (74-106) mg/dL Calcium 8.6 (8.5-10.1) mg/dL HUY Results - Last 24 hrs: Microbiology 09/08/18 09:29 Gram Stain - Final Elbow, Left Wound Culture - Final Beta Strep Not Group A Or B Skin Roxana Anaerobic Culture - Preliminary 09/08/18 02:38 Aerobic Blood Culture - Preliminary Blood - Venous - Lab Draw NO GROWTH AFTER 3 DAYS Anaerobic Blood Culture - Preliminary NO GROWTH AFTER 3 DAYS 09/08/18 02:20 Aerobic Blood Culture - Preliminary Blood - Venous NO GROWTH AFTER 3 DAYS Anaerobic Blood Culture - Preliminary NO GROWTH AFTER 3 DAYS Med Orders - Current: Current Medications Enoxaparin Sodium (Lovenox) 40 mg SUBCUT Q24H [facility] Last Admin: 09/10/18 11:22 Dose: 40 mg Piperacillin Sod/Tazobactam (Sod 3.375 gm/ Sodium Chloride) 50 mls @ 100 mls/ hr IV Q6H [facility] Last Admin: 09/11/18 05:00 Dose: 100 mls/hr Vancomycin HCl 1 gm/ Sodium (Chloride) 250 mls @ 166 mls/hr IV Q8H [facility] Last Admin: 09/11/18 05:30 Dose: 166 mls/hr Morphine Sulfate (Morphine) 3 mg IVPUSH Q3H PRN PRN Reason: Pain Last Admin: 09/11/18 09:27 Dose: 3 mg Oxycodone HCl (Oxycodone) 5 mg PO Q6H PRN PRN Reason: Pain Last Admin: 09/11/18 05:08 Dose: 5 mg Sodium Chloride (Saline Flush) 10 ml FLUSH ASDIRECTED PRN PRN Reason: Keep Vein Open Last Admin: 09/08/18 03:05 Dose: 10 ml Sodium Chloride (Saline Flush) 2.5 ml FLUSH ASDIRECTED PRN PRN Reason: Keep Vein Open Last Admin: 09/08/18 03:05 Dose: 2.5 ml Vancomycin HCl (Pharmacy To Dose - Vancomycin) 1 dose .XX ASDIRECTED [facility] Discontinued Medications Diphtheria/Tetanus/Acell Pertussis (Adacel) 0.5 ml IM .ONCE ONE Stop: 09/08/18 03:33 Last Admin: 09/08/18 03:58 Dose: 0.5 ml Ertapenem 1 gm/ Sodium (Chloride) 50 mls @ 100 mls/hr IV ONETIME ONE Stop: 09/08/18 02:30 Last Admin: 09/08/18 03:04 Dose: 100 mls/hr Dextrose/Sodium Chloride (Dextrose 5%-1/2 Ns) 1,000 mls @ 125 mls/hr IV ASDIRECTED [facility] Last Admin: 09/08/18 03:58 Dose: 125 mls/hr Sodium Chloride (Normal Saline) 1,000 mls @ 125 mls/hr IV ASDIRECTED [facility] Last Admin: 09/11/18 09:24 Dose: 125 mls/hr Vancomycin HCl 1 gm/ Sodium (Chloride) 250 mls @ 166 mls/hr IV Q12H [facility] Last Admin: 09/10/18 06:35 Dose: Not Given Vancomycin HCl 1 gm/ Sodium (Chloride) 250 mls @ 166 mls/hr IV Q8H [facility] Sodium Chloride (Normal Saline) Confirm Administered Dose 250 mls @ as directed .ROUTE .STK-MED ONE Stop: 09/10/18 06:44 Last Admin: 09/10/18 06:45 Dose: Not Given Ketorolac Tromethamine (Toradol) 30 mg IVPUSH ONETIME ONE Stop: 09/08/18 02:02 Last Admin: 09/08/18 02:18 Dose: 30 mg Morphine Sulfate (Morphine) 4 mg IVPUSH ONETIME ONE Stop: 09/08/18 02:07 Last Admin: 09/08/18 02:19 Dose: 4 mg - Exam General: Reports: Alert, Oriented, Cooperative Neck: Reports: Supple Lungs: Reports: Clear to Auscultation, Normal Respiratory Effort Cardiovascular: Reports: Regular Rate, Regular Rhythm GI/Abdominal Exam: Normal Bowel Sounds, Soft, Non-Tender, No Organomegaly Extremities: Normal Inspection, Normal Range of Motion, Non-Tender, No Pedal Edema Wound/Incisions: Reports: Drainage (Scant serous drainage noted to packing to L AC), Erythema Improving (Erythema surrounding wound and that extending proximally to axilla is improving, mild swelling noted to upper bicep. ) Neurological: Reports: No New Focal Deficit Psy/Mental Status: Reports: Alert, Normal Affect, Normal Mood <Francisco Quintero - Last Filed: 09/11/18 18:22> Discharge Summary - Hospital Course HPI Initial Comments: I have seen and examined the patient independently of Asuncion Sow CNP. I have discussed the case with her. I have reviewed and agreed with the plan of treatment as outlined for this patient by her. Please see orders. - Patient Summary/Data Consults: Consultations 09/08/18 03:29 Consult to Physician [CONS] Stat - Patient Data Vitals - Most Recent: Last Vital Signs Temp 36.7 C 09/11/18 12:19 Pulse 87 09/11/18 12:19 Resp 16 09/11/18 12:19 BP 130/79 09/11/18 12:19 Pulse Ox 99 09/11/18 12:19 I&O - Last 24 hours: Intake & Output 09/11/18 09/11/18 09/11/18 06:59 14:59 22:59 Intake Total 400 400 Output Total 650 800 Balance -250 -400 Lab Results - Last 24 hrs: Laboratory Results - last 24 hr 09/11/18 09/11/18 Range/Units 05:40 05:40 WBC 8.59 (4.0-11.0) K/uL RBC 4.28 L (4.50-5.90) M/uL Hgb 12.3 L (13.0-17.0) g/dL Hct 37.0 L (38.0-50.0) % MCV 86.4 (80.0-98.0) fL MCH 28.7 (27.0-32.0) pg MCHC 33.2 (31.0-37.0) g/dL RDW Std Deviation 41.6 (28.0-62.0) fl RDW Coeff of Janelle 13 (11.0-15.0) % Plt Count 369 (150-400) K/uL MPV 8.50 (7.40-12.00) fL Neut % (Auto) 60.9 (48.0-80.0) % Lymph % (Auto) 23.7 (16.0-40.0) % [place] % (Auto) 11.6 (0.0-15.0) % Eos % (Auto) 3.5 (0.0-7.0) % Baso % (Auto) 0.3 (0.0-1.5) % Neut # (Auto) 5.2 (1.4-5.7) K/uL Lymph # (Auto) 2.0 (0.6-2.4) K/uL [place] # (Auto) 1.0 H (0.0-0.8) K/uL Eos # (Auto) 0.3 (0.0-0.7) K/uL Baso # (Auto) 0.0 (0.0-0.1) K/uL Nucleated RBC % 0.0 /100WBC Nucleated RBCs # 0 K/uL Sodium 140 (136-148) mmol/L Potassium 4.1 (3.5-5.1) mmol/L Chloride 107 (98-107) mmol/L Carbon Dioxide 27.2 (21.0-32.0) mmol/L BUN 12 (7.0-18.0) mg/dL Creatinine 0.8 (0.8-1.3) mg/dL Est Cr Clr Drug Dosing 107.61 mL/min Estimated GFR (MDRD) > 60.0 ml/min Glucose 110 H (74-106) mg/dL Calcium 8.6 (8.5-10.1) mg/dL HUY Results - Last 24 hrs: Microbiology 09/08/18 09:29 Gram Stain - Final Elbow, Left Wound Culture - Final Beta Strep Not Group A Or B Skin Roxana Anaerobic Culture - Preliminary 09/08/18 02:38 Aerobic Blood Culture - Preliminary Blood - Venous - Lab Draw NO GROWTH AFTER 3 DAYS Anaerobic Blood Culture - Preliminary NO GROWTH AFTER 3 DAYS 09/08/18 02:20 Aerobic Blood Culture - Preliminary Blood - Venous NO GROWTH AFTER 3 DAYS Anaerobic Blood Culture - Preliminary NO GROWTH AFTER 3 DAYS Med Orders - Current: Current Medications Discontinued Medications Diphtheria/Tetanus/Acell Pertussis (Adacel) 0.5 ml IM .ONCE ONE Stop: 09/08/18 03:33 Last Admin: 09/08/18 03:58 Dose: 0.5 ml Enoxaparin Sodium (Lovenox) 40 mg SUBCUT Q24H [facility] Last Admin: 09/11/18 11:35 Dose: 40 mg Ertapenem 1 gm/ Sodium (Chloride) 50 mls @ 100 mls/hr IV ONETIME ONE Stop: 09/08/18 02:30 Last Admin: 09/08/18 03:04 Dose: 100 mls/hr Dextrose/Sodium Chloride (Dextrose 5%-1/2 Ns) 1,000 mls @ 125 mls/hr IV ASDIRECTED [facility] Last Admin: 09/08/18 03:58 Dose: 125 mls/hr Piperacillin Sod/Tazobactam (Sod 3.375 gm/ Sodium Chloride) 50 mls @ 100 mls/ hr IV Q6H [facility] Last Admin: 09/11/18 11:29 Dose: 100 mls/hr Sodium Chloride (Normal Saline) 1,000 mls @ 125 mls/hr IV ASDIRECTED [facility] Last Admin: 09/11/18 09:24 Dose: 125 mls/hr Vancomycin HCl 1 gm/ Sodium (Chloride) 250 mls @ 166 mls/hr IV Q12H [facility] Last Admin: 09/10/18 06:35 Dose: Not Given Vancomycin HCl 1 gm/ Sodium (Chloride) 250 mls @ 166 mls/hr IV Q8H [facility] Vancomycin HCl 1 gm/ Sodium (Chloride) 250 mls @ 166 mls/hr IV Q8H [facility] Last Admin: 09/11/18 05:30 Dose: 166 mls/hr Sodium Chloride (Normal Saline) Confirm Administered Dose 250 mls @ as directed .ROUTE .STK-MED ONE Stop: 09/10/18 06:44 Last Admin: 09/10/18 06:45 Dose: Not Given Ketorolac Tromethamine (Toradol) 30 mg IVPUSH ONETIME ONE Stop: 09/08/18 02:02 Last Admin: 09/08/18 02:18 Dose: 30 mg Morphine Sulfate (Morphine) 4 mg IVPUSH ONETIME ONE Stop: 09/08/18 02:07 Last Admin: 09/08/18 02:19 Dose: 4 mg Morphine Sulfate (Morphine) 3 mg IVPUSH Q3H PRN PRN Reason: Pain Last Admin: 09/11/18 09:27 Dose: 3 mg Oxycodone HCl (Oxycodone) 5 mg PO Q6H PRN PRN Reason: Pain Last Admin: 09/11/18 05:08 Dose: 5 mg Sodium Chloride (Saline Flush) 10 ml FLUSH ASDIRECTED PRN PRN Reason: Keep Vein Open Last Admin: 09/08/18 03:05 Dose: 10 ml Sodium Chloride (Saline Flush) 2.5 ml FLUSH ASDIRECTED PRN PRN Reason: Keep Vein Open Last Admin: 09/08/18 03:05 Dose: 2.5 ml Vancomycin HCl (Pharmacy To Dose - Vancomycin) 1 dose .XX ASDIRECTED [facility]
[2018-09-11] MEDS: Enoxaparin 40 MG/0.4 ML Syringe SUBCUT SCH (11:35)
== END 2018-09-11 13:05 | disposition home or self-care (01) | DRG 581 ==
LOC: MW.ED 01:36 → MW.MS 03:25
PROVIDERS: ADMIT Internal Medicine; ATTEND Internal Medicine
PROC: 0J9H0ZZ Drainage of Left Lower Arm Subcutaneous Tissue and Fascia, Open Approach (ICD-10-PCS; principal; 2018-09-08)
PROC: 3E0234Z Introduction of Serum, Toxoid and Vaccine into Muscle, Percutaneous Approach (ICD-10-PCS; 2018-09-08)
DX: L02.414 Cutaneous abscess of left upper limb (principal); L03.114 Cellulitis of left upper limb; F17.210 Nicotine dependence, cigarettes, uncomplicated; F11.10 Opioid abuse, uncomplicated; Z87.442 Personal history of urinary calculi; Z23 Encounter for immunization
CPT/HCPCS: 36415; 73070-26-LT; 73070-LT; 76881-26-LT; 76881-LT; 76882; 76882-26; 80048; 80053; 80202; 83605; 85025; 87040; 87070; 87075; 87186; 87205; 90715; 96365; 96375; 99284; 99285-25; A9270-GY; J1335; J1650; J1885; J2270; J2543; J3370; J7040; J7042; J7050

== ENCOUNTER 2019-12-05 12:09 | Emergency (ER) | payer SELFPAY ==
--- NOTE | 2019-12-05 13:08 | EDM.PDOC ---
ED HPI GENERAL MEDICAL PROBLEM - General Chief Complaint: General Stated Complaint: SHAKING ARMS Time Seen by Provider: 12/05/19 12:10 Source of Information: Reports: Patient History Limitations: Reports: No Limitations - History of Present Illness INITIAL COMMENTS - FREE TEXT/NARRATIVE: 39-year-old male with history of IVDA, substance abuse presents with a possible cyst behind his right ear and a rash. This morning he felt like there was a cyst behind his right ear and he wanted to pop it but nothing would come out. Afterwards he started noticing that his knees turned purple. He freaked out and came here for assessment. He denies fever, chills, nausea, vomiting, chest pain, shortness of breath, abdominal pain, headache. ROS: A 10-point review of systems, other than pertinent positives and negatives as stated per HPI, is otherwise negative PHYSICAL EXAM General: AOx4, GCS = 15, No distress HEENT: dry mucous membrane, right external auditory canal patent, no swelling, TM no erythema. No tenderness to right mastoid process, no tenderness with pinna and tragus manipulation. No induration or cyst found in the posterior auricular area. Neck: supple, no meningismus, no Kernig or Brudzinski Cardiac: S1S2 tachycardia Respiratory: CTAB, no crackles or rales, no wheezing Abdomen: Soft, nontender, no rebound or guarding, nondistended, no pulsatile mass. Back: nontender Skin: No rash noted Musculoskeletal: NVI distally, no deformity Neuro: No focal deficits. Right Ear Pain Score (Numeric/FACES): 0 - Related Data Allergies Allergy/AdvReac Type Severity Reaction Status Date / Time No Known Allergies Allergy Verified 09/08/18 01:49 Home Meds: Home Meds . [No Known Home Meds] 12/05/19 [History] Past Medical History - Past Health History Medical/Surgical History: Denies Medical/Surgical History Genitourinary History: Reports: Renal Calculus Psychiatric History: Reports: None Dermatologic History: Reports: Cellulitis - Infectious Disease History Infectious Disease History: Reports: Chicken Pox - Past Surgical History Male Surgical History: Reports: Kidney Stone Extraction, Lithotripsy ([facility]) Social & Family History - Family History Family Medical History: Noncontributory - Caffeine Use Caffeine Use: Reports: Coffee, Soda, Tea ED ROS GENERAL - Review of Systems Review Of Systems: Comprehensive ROS is negative, except as noted in HPI. ED EXAM, GENERAL - Physical Exam Exam: See Below Course - Vital Signs Last Recorded V/S: Last Vital Signs Temp 98.8 F 12/05/19 12:48 Pulse 112 H 12/05/19 12:48 Resp 20 12/05/19 12:48 BP 148/98 H 12/05/19 12:48 Pulse Ox 97 12/05/19 12:48 - Orders/Labs/Meds Orders: Active Orders 24 hr Category Date Time Status EKG 12 Lead [EKG Documentation Completion] [RC] ROUTINE Care 12/05/19 12:58 Active Labs: Laboratory Tests 12/05/19 Range/Units 12:48 Urine Opiates Screen NEGATIVE (NEGATIVE) Ur Oxycodone Screen NEGATIVE (NEGATIVE) Urine Methadone Screen NEGATIVE (NEGATIVE) Ur Barbiturates Screen NEGATIVE (NEGATIVE) Ur Phencyclidine Scrn NEGATIVE (NEGATIVE) Ur Amphetamine Screen POSITIVE (NEGATIVE) U Methamphetamines Scrn POSITIVE (NEGATIVE) U Benzodiazepines Scrn NEGATIVE (NEGATIVE) U Cocaine Metab Screen NEGATIVE (NEGATIVE) U Marijuana (THC) Screen NEGATIVE (NEGATIVE) - Re-Assessments/Exams Free Text/Narrative Re-Assessment/Exam: 12/05/19 13:22 After treatments and a prolonged observation period in the ER, the patient improved clinically and is stable for discharge. I performed a repeat examination and the patient has not demonstrated any new abnormal findings. I advised the patient to return to the ER for reevaluation if symptoms worsened, and to follow up with their PCP within 2-3 days. MEDICAL DECISION MAKING: I reviewed the patients past medical records, lab and radiographic findings. I discussed the case with the patient. My differential diagnosis included: Methamphetamine use, drug-induced psychosis. His physical exam did not reveal any cyst or induration or fluctuance around his right ear, I do not suspect mastoiditis, AOE, AOM, folliculitis. He was tweaking from his meth use. I do not appreciate any specific rash on his knees or arms or legs or abdomen. He was tachycardic, likely secondary from his methamphetamine use. I do not appreciate a murmur, he was afebrile, I do not suspect endocarditis despite his history of IVDA. Departure - Departure Time of Disposition: 13:24 Disposition: Home, Self-Care 01 Condition: Good Clinical Impression: Amphetamine abuse, Substance abuse - Discharge Information *PRESCRIPTION DRUG MONITORING PROGRAM REVIEWED*: Not Applicable *COPY OF PRESCRIPTION DRUG MONITORING REPORT IN PATIENT EVELIN: Not Applicable Instructions: Stimulant Use Disorder-Amphetamines, Stimulant Use Disorder-Meth amphetamines Referrals: PCP,None [Primary Care Provider] - 3 Days Forms: ED Department Discharge Additional Instructions: The following information is given to patients seen in the emergency department who are being discharged to home. This information is to outline your options for follow-up care. We provide all patients seen in our emergency department with a follow-up referral. The need for follow-up, as well as the timing and circumstances, are variable depending upon the specifics of your emergency department visit. If you don't have a primary care physician on staff, we will provide you with a referral. We always advise you to contact your personal physician following an emergency department visit to inform them of the circumstance of the visit and for follow-up with them and/or the need for any referrals to a consulting specialist. The emergency department will also refer you to a specialist when appropriate. This referral assures that you have the opportunity for follow-up care with a specialist. All of these measure are taken in an effort to provide you with optimal care, which includes your follow-up. Under all circumstances we always encourage you to contact your private physician who remains a resource for coordinating your care. When calling for follow-up care, please make the office aware that this follow-up is from your recent emergency room visit. If for any reason you are refused follow-up, please contact the [facility] Emergency Department at and asked to speak to the emergency department charge nurse. If you do not have a primary care doctor, please follow up with the clinics below within 3-5 days. Ollie Rodriguez [facility] - Primary Care [address], [place] [address] [facility] [address] [place] [address] Care Plan Goals: Drug Cessation Counseling: The patient was counseled as to the multiple risks to their health from continued use of drugs. It was explained that continuing to use drugs may lead to multiple short and termite treater helper negative health consequences. The patient states they understands these risks, and also understands the options and resources available to them to help them stop using drugs. Local resources were discussed as viable options for helping them manage their drug use. The total time spent: 3 minutes. Sepsis Event Note (ED) - Focused Exam Vital Signs: Vital Signs Temp Pulse Resp BP Pulse Ox 12/05/19 12:48 98.8 F 112 H 20 148/98 H 97 - My Orders Last 24 Hours: My Active Orders 12/05/19 12:58 EKG 12 Lead [EKG Documentation Completion] [RC] ROUTINE - Assessment/Plan Last 24 Hours: My Active Orders 12/05/19 12:58 EKG 12 Lead [EKG Documentation Completion] [RC] ROUTINE
== END 2019-12-05 13:27 | disposition left against medical advice (07) ==
LOC: MW.ED 12:09
DX: F15.10 Other stimulant abuse, uncomplicated (principal); R00.0 Tachycardia, unspecified
CPT/HCPCS: 80305-QW; 93005; 99284-25

== ENCOUNTER 2020-01-09 20:53 | Emergency (ER) | payer BC ==
[2020-01-09] MEDS ORDERED: Lidocaine 1% 20 ML MDV INJECT ONE (21:24)
--- NOTE | 2020-01-09 21:24 | EDM.PDOC ---
ED HPI GENERAL MEDICAL PROBLEM - General Chief Complaint: Laceration Stated Complaint: FINGER LACERATION Time Seen by Provider: 01/09/20 21:21 Source of Information: Reports: Patient History Limitations: Reports: No Limitations - History of Present Illness INITIAL COMMENTS - FREE TEXT/NARRATIVE: 39M presents with finger lacs. Slammed hand in toolbox. Lacs to L thumb and L 3rd finger Onset: Today Left Finger-Middle Pain Score (Numeric/FACES): 6 - Related Data Allergies Allergy/AdvReac Type Severity Reaction Status Date / Time No Known Allergies Allergy Verified 01/09/20 21:25 Home Meds: Home Meds cephALEXin [Keflex] 500 mg PO TID 7 Days #21 cap 01/09/20 [Rx] Past Medical History - Past Health History Medical/Surgical History: Denies Medical/Surgical History Cardiovascular History: Reports: None Respiratory History: Reports: None Gastrointestinal History: Reports: None Genitourinary History: Reports: Renal Calculus Musculoskeletal History: Reports: None Neurological History: Reports: None Psychiatric History: Reports: None Endocrine/Metabolic History: Reports: None Dermatologic History: Reports: Cellulitis Other Dermatologic History: left arm - Infectious Disease History Infectious Disease History: Reports: Chicken Pox - Past Surgical History Male Surgical History: Reports: Kidney Stone Extraction, Lithotripsy (ESWL) Social & Family History - Family History Family Medical History: Noncontributory - Caffeine Use Caffeine Use: Reports: Coffee, Soda, Tea ED ROS GENERAL - Review of Systems Review Of Systems: Comprehensive ROS is negative, except as noted in HPI. ED EXAM, SKIN/RASH Exam: See Below Exam Limited By: No Limitations General Appearance: Alert, WD/WN, No Apparent Distress Head: Atraumatic Respiratory/Chest: No Respiratory Distress, Lungs Clear, No Accessory Muscle Use Cardiovascular: Normal Peripheral Pulses Extremities: Normal Inspection Skin: Warm, Dry, Other (1.5-cm laceration to palmar DIP L 3rd digit, 0.5-cm laceration to palmar DIP L thumb) ED SKIN PROCEDURES - Laceration/Wound Repair Left Hand Appearance: Subcutaneous Distal NVT: Neuro & Vascular Intact Anesthetic Type: Digital Local Anesthesia - Lidocaine (Xylocaine): 1% Plain Local Anesthetic Volume: 5cc Skin Prep: Chlorhexidine (Hibiciens) Closed with: Sutures Lac/Wound length In cm: 2 Suture Size: 6-0 # of Sutures: 6 Suture Type: Silk Repaired with: Other (ethilon) Drain Placement: No Sterile Dressing Applied: Nurse Tetanus Status Addressed: Yes Complications: No Hand Appearance: Subcutaneous Distal NVT: Neuro & Vascular Intact Anesthetic Type: Digital Local Anesthesia - Lidocaine (Xylocaine): 1% Plain Local Anesthetic Volume: 5cc Skin Prep: Chlorhexidine (Hibiciens) Closed with: Sutures Lac/Wound length In cm: 0.5 Suture Size: 6-0 # of Sutures: 1 Suture Type: Silk Repaired with: Other (ethilon) Sterile Dressing Applied: Nurse Tetanus Status Addressed: Yes Complications: No Course - Vital Signs Last Recorded V/S: Last Vital Signs Temp 97.8 F 01/09/20 21:24 Pulse 95 01/09/20 21:24 Resp 18 01/09/20 21:24 BP 133/84 01/09/20 21:24 Pulse Ox 98 01/09/20 21:24 - Orders/Labs/Meds Meds: Medications Discontinued Medications Generic Name Dose Route Start Last Admin Trade Name Evelia PRN Reason Stop Dose Admin Lidocaine HCl 20 ml 01/09/20 21:24 Xylocaine 1% INJECT 01/09/20 21:25 ONETIME ONE Lidocaine HCl 20 ml 01/09/20 21:54 Xylocaine-Mpf 1% INJECT 01/09/20 21:55 ONETIME ONE Lidocaine HCl 5 ml 01/09/20 22:30 Xylocaine-Mpf 1% INJECT 01/09/20 22:31 ONETIME ONE Lidocaine HCl Confirm 01/09/20 22:32 Xylocaine-Mpf 1% Administered 01/09/20 22:33 Dose 5 ml .ROUTE .STK-MED ONE - Re-Assessments/Exams Free Text/Narrative Re-Assessment/Exam: 01/09/20 23:01 wound repaired, return 7-10 days removal, keflex prophylax, Tdap UTD already Departure - Departure Time of Disposition: 22:48 Disposition: Home, Self-Care 01 Condition: Good Clinical Impression: Laceration - Discharge Information *PRESCRIPTION DRUG MONITORING PROGRAM REVIEWED*: No *COPY OF PRESCRIPTION DRUG MONITORING REPORT IN PATIENT EVELIN: No Prescriptions: cephALEXin [Keflex] 500 mg PO TID 7 Days #21 cap Instructions: Laceration Care, Adult, [id number] Referrals: ED, ER [Other] [facility] [Ordering Only Provider] - Forms: ED Department Discharge Additional Instructions: The following information is given to patients seen in the emergency department who are being discharged to home. This information is to outline your options for follow-up care. We provide all patients seen in our emergency department with a follow-up referral. The need for follow-up, as well as the timing and circumstances, are variable depending upon the specifics of your emergency department visit. If you don't have a primary care physician on staff, we will provide you with a referral. We always advise you to contact your personal physician following an emergency department visit to inform them of the circumstance of the visit and for follow-up with them and/or the need for any referrals to a consulting specialist. The emergency department will also refer you to a specialist when appropriate. This referral assures that you have the opportunity for follow-up care with a specialist. All of these measure are taken in an effort to provide you with optimal care, which includes your follow-up. Under all circumstances we always encourage you to contact your private physician who remains a resource for coordinating your care. When calling for follow-up care, please make the office aware that this follow-up is from your recent emergency room visit. If for any reason you are refused follow-up, please contact the [facility] Emergency Department at and asked to speak to the emergency department charge nurse. Sutures out in 7-10 days. Monitor for signs of infection, redness, swelling, warmth, drainage. Keep area clean and dry. Follow up with primary care provider as needed. Tylenol or Motrin for pain. Sepsis Event Note (ED) - Focused Exam Vital Signs: Vital Signs Temp Pulse Resp BP Pulse Ox 01/09/20 21:24 97.8 F 95 18 133/84 98
== END 2020-01-09 23:06 | disposition home or self-care (01) ==
LOC: MW.ED 20:53
DX: S61.012A Laceration without foreign body of left thumb without damage to nail, initial encounter (principal); S61.213A Laceration without foreign body of left middle finger without damage to nail, initial encounter; W27.8XXA Contact with other nonpowered hand tool, initial encounter
CPT/HCPCS: 12001; 99282; J2001

== ENCOUNTER 2020-01-11 12:47 | Emergency (ER) | payer BC ==
--- NOTE | 2020-01-11 13:06 | EDM.PDOC ---
ED HPI GENERAL MEDICAL PROBLEM - General Chief Complaint: Skin Complaint Stated Complaint: STITCHES LOOKED AT Time Seen by Provider: 01/11/20 12:59 Source of Information: Reports: Patient History Limitations: Reports: No Limitations - History of Present Illness INITIAL COMMENTS - FREE TEXT/NARRATIVE: HISTORY AND PHYSICAL: History of present illness: Patient is a 39-year-old male who presents to the emergency room requesting to have his suture site looked at. Patient had stitches placed on 01/09/2020. He had slammed his fingers in a toolbox resulting in a laceration of the left thumb and third digit. The finger laceration that had 6 stitches had one burst open. He is concerned that he may need the area re-stitched. The injury is over 48 hours old. He is currently on Keflex and taken this medication as directed. He denies any excessive drainage, redness, swelling or concerns other than the stitch itself having "popped open". He offers no systemic complaints. Review of systems: As per history of present illness and below otherwise all systems reviewed and negative. Past medical history: As per history of present illness and as reviewed below otherwise non contributory. Surgical history: As per history of present illness and as reviewed below otherwise noncontributory. Social history: See social history for further information Family history: As per history of present illness and as reviewed below otherwise noncontributory. Physical exam: General: Developed and well-nourished 39-year-old male. Alert and oriented. Nontoxic-appearing and in no acute distress. HEENT: Atraumatic, normocephalic, pupils equal and reactive bilaterally, negative for conjunctival pallor or scleral icterus, mucous membranes moist, trachea midline. No drooling or trismus noted. No meningeal signs. No hot potato voice noted. Lungs: Clear to auscultation, breath sounds equal bilaterally. Heart: S1S2, regular rate and rhythm without overt murmur Skin: Healing laceration to left thumb, 1 interrupted stitch noted. Healing laceration of the left third digit, 1.5 cm with 5 interrupted stitches. Small area between #2 and 3 which previously had a stitch that is non-approximated. No drainage or erythema noted. Otherwise skin is intact, warm, dry. No lesions or rashes noted. Hematologic: No petechiae or purpra. Mucosa appropriate color and normal nail bed color and refill. Extremities: Atraumatic, moves all extremities per self without difficulty or deficits, negative for cords or calf pain. Neurovascular unremarkable. Neuro: Awake, alert, oriented. Cranial nerves II through XII unremarkable. Cerebellum unremarkable. Motor and sensory unremarkable throughout. Exam nonfocal. Notes: Area was cleansed and a Steri-Strip was applied where the stitch had previously been. Encourage patient to continue taking his antibiotic. We discussed signs and symptoms that would prompt him to return to the emergency room. Follow-up and supportive care measures were reviewed and discussed. Voices understanding and is agreeable to plan of care. Denies any further questions or concerns at this time. Diagnostics: None Therapeutics: Wound care, Steri-Strip Prescription: None Impression: Wound recheck Plan: 1. Keep the area clean and dry. Continue to monitor for signs of infection. Continue taking the antibiotic as prescribed. Follow-up for suture removal as you had previously been told. 2. Tylenol and/or ibuprofen as needed for pain management. 3. Please follow-up with your primary care provider in the next 1-2 days. Return to the ED as needed and as discussed. Definitive disposition and diagnosis as appropriate pending reevaluation and review of above. - Related Data Allergies Allergy/AdvReac Type Severity Reaction Status Date / Time No Known Allergies Allergy Verified 01/11/20 13:03 Home Meds: Home Meds cephALEXin [Keflex] 500 mg PO TID 7 Days #21 cap 01/09/20 [Rx] Past Medical History - Past Health History Medical/Surgical History: Denies Medical/Surgical History HEENT History: Reports: None Cardiovascular History: Reports: None Respiratory History: Reports: None Gastrointestinal History: Reports: None Genitourinary History: Reports: Renal Calculus Musculoskeletal History: Reports: None Neurological History: Reports: None Psychiatric History: Reports: None Endocrine/Metabolic History: Reports: None Hematologic History: Reports: None Immunologic History: Reports: None Oncologic (Cancer) History: Reports: None Dermatologic History: Reports: Cellulitis Other Dermatologic History: left arm - Infectious Disease History Infectious Disease History: Reports: Chicken Pox - Past Surgical History Male Surgical History: Reports: Kidney Stone Extraction, Lithotripsy (ESWL) Social & Family History - Family History Family Medical History: Noncontributory - Caffeine Use Caffeine Use: Reports: Coffee, Soda, Tea ED ROS GENERAL - Review of Systems Review Of Systems: Comprehensive ROS is negative, except as noted in HPI. ED EXAM, SKIN/RASH Exam: See Below (See dictation) Departure - Departure Time of Disposition: 13:10 Disposition: Home, Self-Care 01 Clinical Impression: Encounter for wound re-check - Discharge Information Referrals: PCP,None [Primary Care Provider] - Additional Instructions: The following information is given to patients seen in the emergency department who are being discharged to home. This information is to outline your options for follow-up care. We provide all patients seen in our emergency department with a follow-up referral. The need for follow-up, as well as the timing and circumstances, are variable depending upon the specifics of your emergency department visit. If you don't have a primary care physician on staff, we will provide you with a referral. We always advise you to contact your personal physician following an emergency department visit to inform them of the circumstance of the visit and for follow-up with them and/or the need for any referrals to a consulting specialist. The emergency department will also refer you to a specialist when appropriate. This referral assures that you have the opportunity for follow-up care with a specialist. All of these measure are taken in an effort to provide you with optimal care, which includes your follow-up. Under all circumstances we always encourage you to contact your private physician who remains a resource for coordinating your care. When calling for f ollow-up care, please make the office aware that this follow-up is from your recent emergency room visit. If for any reason you are refused follow-up, please contact the [facility] Emergency Department at and asked to speak to the emergency department charge nurse. [facility] [address] [place] [id number] [facility] [address] [place] [id number] Thank you for choosing the [facility] emergency department in [place] for your medical needs today. It was a pleasure caring for you. Today you were seen in the emergency department for wound recheck of a suture site. 1. Keep the area clean and dry. Continue to monitor for signs of infection. Continue taking the antibiotic as prescribed. Follow-up for suture removal as you had previously been told. 2. Tylenol and/or ibuprofen as needed for pain management. 3. Please follow-up with your primary care provider in the next 1-2 days. Return to the ED as needed and as discussed.
== END 2020-01-11 13:15 | disposition home or self-care (01) ==
LOC: MW.ED 12:47
DX: Z48.817 Encounter for surgical aftercare following surgery on the skin and subcutaneous tissue (principal)
CPT/HCPCS: 99282

== ENCOUNTER 2020-01-19 10:42 | Emergency (ER) | payer SELFPAY | END 2020-01-19 11:09 | disposition home or self-care (01) | LOC: MW.ED 10:42 | DX: S61.213D Laceration without foreign body of left middle finger without damage to nail, subsequent encounter (principal); S61.012D Laceration without foreign body of left thumb without damage to nail, subsequent encounter; W23.0XXD Caught, crushed, jammed, or pinched between moving objects, subsequent encounter | CPT/HCPCS: 99281 ==